=== PATIENT | male | born 1955 | race African-American/Black ===

== ENCOUNTER 2019-02-04 14:03 | Emergency (ER) | payer OTHER ==
--- NOTE | 2019-02-04 14:34 | RAD ---
3 views right wrist. HISTORY: Fall. Right wrist pain. AP, lateral and oblique views right wrist obtained. Images demonstrate vascular calcification seen. No evidence of right wrist fractures, subluxations or bony lesion seen. The scaphoid is unremarkable. IMPRESSION: normal right wrist.
--- NOTE | 2019-02-04 14:39 | RAD ---
AP VIEW OF THE CHEST: HISTORY: Dizziness and fall. DATE: 02/04/2019. COMPARISON: Comparison is made to a previous exam from 06/19/2017. FINDINGS: Calcification and ectasia of the aorta seen. There are areas of patchy density in the left lower lobe compatible with left lower lobe patchy pneum onia. Some of this may also be due to interstitial fibrotic changes. Follow-up films to resolution recommended. IMPRESSION: Areas of patchy density in the left lung base with some interstitial components. Findings may represe nt left lower lobe pneumonia with some component of interstitial fibrosis. Transcribed Date/Time: 02/04/2019 2:42 PM
[2019-02-04 14:46] LABS: #Basophils 0.1 thou/uL (0.0-0.2); #Eosinphils 0.2 thou/uL (0.0-0.7); #Lymphocytes 2.6 thou/uL (1.20-3.40); #Monocytes 0.4 thou/uL (0.11-0.59); #Neutrophils 3.6 thou/uL (1.40-6.50); %Basophils 1.5 % (0.0-1.0); %Eosinophils 3.6 % (0.0-10.0); %Lymphocytes 37.4 % (21.0-51.0); %Monocytes 5.4 % (0.0-10.0); %Neutrophils 52.2 % (42.0-75.0); Hemoglobin 14.8 g/dL (14.0-18.0); Mean Corpuscular HGB CONC 34.3 g/dL (32.0-36.0); Mean Corpuscular Hemoglobin 35.2 pg (27.0-31.0); Mean Platelet Volume 6.8 fL (7.4-10.4); Platelet Count 299 thou/uL (130-400); RBC Distribution Width 13.5 % (11.5-14.5); Red Blood Cell (RBC) Count 4.21 mill/uL (4.70-6.10); White Blood Cell (WBC) Count 6.8 thou/uL (4.8-10.8)
--- NOTE | 2019-02-04 14:47 | CT ---
BRAIN CT WITHOUT IV CONTRAST: HISTORY: Injury following a fall, dizziness. COMPARISON: 06/19/2017. FINDINGS: There is some minimal scattered atrophy and chronic white matter ischemic changes with some small pun ctate old lacunar infarct changes. No focal mass or midline shift. No intra- or extraaxial hemorrha ge. Sinuses and mastoids are clear of acute process. IMPRESSION: Stable atrophy and chronic white matter ischemic change. No mass or bleed or other acute process. POS: C
--- NOTE | 2019-02-04 14:54 | CT ---
CT CERVICAL SPINE NONCONTRAST: DATE: 02/04/2019 HISTORY: cervical trauma FINDINGS: There are no jumped or perched facets. There is no evidence of acute fracture. The vertebral body hei ghts are maintained. There is no prevertebral soft tissue swelling. There are severe multilevel degenerative disc changes and facet osteoarthrosis. IMPRESSION: 1) severe Cervical spondylosis. 2) no evidence of acute fracture or acute traumatic subluxation.
[2019-02-04 15:10] LABS: ALT (SGPT) 30 U/L (8-55); AST (SGOT) 65 U/L (5-34); Albumin 4.2 g/dL (3.4-4.8); Alkaline Phosphatase 81 U/L (40-150); Anion Gap 24 mmol/L (10-20); BUN (Urea Nitrogen) 14 mg/dL (8.4-25.7); Bilirubin, Total 0.5 mg/dL (0.2-1.2); Calc. Creatinine Clearance 0 mL/min (70-130); Calcium 9.9 mg/dL (7.8-10.44); Carbon Dioxide 17 mmol/L (23-31); Chloride 101 mmol/L (98-107); Estimated GFR-MDRD Greater than 90; Globulin 4.9 g/dL (2.4-3.5); Magnesium 1.5 mg/dL (1.6-2.6); Potassium 4.1 mmol/L (3.5-5.1); Protein, Total 9.1 g/dL (5.8-8.1); Sodium 138 mmol/L (136-145)
[2019-02-04 15:17] LABS: Glucose 52 mg/dL (80-115)
== END 2019-02-04 16:25 | disposition home or self-care (01) ==
LOC: ERS 14:03
DX: R42 Dizziness and giddiness (principal); F20.9 Schizophrenia, unspecified; F17.210 Nicotine dependence, cigarettes, uncomplicated; W19.XXXA Unspecified fall, initial encounter
CPT/HCPCS: 36416; 70450; 71045; 72125; 80053; 83735; 84484; 85025; 93005; 96360; 96361; 96374

== ENCOUNTER 2020-03-16 11:26 | Emergency (ER) | payer OTHER ==
[2020-03-16 12:14] LABS: #Basophils 0.1 thou/uL (0.0-0.2); #Eosinphils 0.1 thou/uL (0.0-0.7); #Lymphocytes 1.9 thou/uL (1.20-3.40); #Monocytes 0.6 thou/uL (0.11-0.59); %Eosinophils 1.9 % (0.0-10.0); %Lymphocytes 32.5 % (21.0-51.0); %Neutrophils 53.6 % (42.0-75.0); Hemoglobin 14.5 g/dL (14.0-18.0); Mean Corpuscular HGB CONC 32.8 g/dL (32.0-36.0); Mean Corpuscular Hemoglobin 33.7 pg (27.0-31.0); Mean Platelet Volume 7.7 fL (7.4-10.4); Platelet Count 167 thou/uL (130-400); RBC Distribution Width 12.5 % (11.5-14.5); Red Blood Cell (RBC) Count 4.32 mill/uL (4.70-6.10); White Blood Cell (WBC) Count 5.7 thou/uL (4.8-10.8)
--- NOTE | 2020-03-16 12:29 | RAD ---
Portable frontal chest radiograph: 03/16/2020 COMPARISON: 02/04/2019 HISTORY: Hypertension FINDINGS: There is increased linear interstitial density with pulmonary hyperinflation which may sign sarah COPD in the proper clinical setting. Heart and mediastinal contours are stable. Increased linear interstitial density noted in the lung bases, unchanged. IMPRESSION: Chronic findings as detailed above. No focal consolidation or alveolar edema.
[2020-03-16 12:31] LABS: ALT (SGPT) 31 U/L (8-55); AST (SGOT) 70 U/L (5-34); Albumin 3.8 g/dL (3.4-4.8); Alkaline Phosphatase 78 U/L (40-110); Anion Gap 21 mmol/L (10-20); BUN (Urea Nitrogen) 8 mg/dL (8.4-25.7); Bilirubin, Total 0.6 mg/dL (0.2-1.2); CK (CPK) 134 U/L (30-200); Calc. Creatinine Clearance 0 mL/min (70-130); Calcium 9.3 mg/dL (7.8-10.44); Carbon Dioxide 17 mmol/L (23-31); Chloride 102 mmol/L (98-107); Estimated GFR-MDRD Greater than 90; Globulin 4.9 g/dL (2.4-3.5); Glucose 104 mg/dL (80-115); Potassium 3.6 mmol/L (3.5-5.1); Protein, Total 8.7 g/dL (5.8-8.1); Sodium 136 mmol/L (136-145)
== END 2020-03-16 13:58 | disposition home or self-care (01) ==
LOC: ERS 11:26
DX: I10 Essential (primary) hypertension (principal); F20.9 Schizophrenia, unspecified; F17.210 Nicotine dependence, cigarettes, uncomplicated
CPT/HCPCS: 36415; 71045; 80053; 82550; 83880; 84484; 85025; 93005

== ENCOUNTER 2020-06-05 14:24 | Emergency (ER) | payer OTHER ==
[2020-06-05 14:53] LABS: Bacteria/HPF None Seen HPF (None Seen); Bilirubin Negative (Negative); Blood, Urine Negative (Negative); Clarity Clear (Clear); Glucose, Urine (Dipstick) Normal (Negative); Ketone, Urine Negative (Negative); Leukocyte 250 Leu/uL (Negative); Nitrite Negative (Negative); Protein, Urine (Dipstick) 10 mg/dL (Neg-Trace); RBC/HPF 0-3 HPF (0-3); Specific Gravity, Urine 1.017 (1.002-1.036); Squamous Epithelial 0-3 HPF (0-3); Urobilinogen Normal mg/dL (Less than 2)
--- NOTE | 2020-06-05 15:37 | RAD ---
Exam:3 views left foot. HISTORY: Necrosis of the toes. COMPARISON: Diffuse bony mineralization. Subluxation of the FINDINGS: Proximal interphalangeal joint space of the second digit. No erosive or destructive changes . Lisfranc alignment is maintained. No fracture. Minimal atherosclerosis. IMPRESSION: Minimal atherosclerosis. No erosive or destructive changes. Diffuse bony mineralization.
[2020-06-05 15:46] LABS: #Basophils 0.1 thou/uL (0.0-0.2); #Eosinphils 0.3 thou/uL (0.0-0.7); #Lymphocytes 1.6 thou/uL (1.20-3.40); #Monocytes 0.5 thou/uL (0.11-0.59); #Neutrophils 4.1 thou/uL (1.40-6.50); %Basophils 1.2 % (0.0-1.0); %Eosinophils 4.6 % (0.0-10.0); %Lymphocytes 24.5 % (21.0-51.0); %Monocytes 7.3 % (0.0-10.0); %Neutrophils 62.3 % (42.0-75.0); Hemoglobin 13.1 g/dL (14.0-18.0); Mean Corpuscular HGB CONC 33.9 g/dL (32.0-36.0); Mean Corpuscular Hemoglobin 35.5 pg (27.0-31.0); Mean Platelet Volume 6.9 fL (7.4-10.4); Platelet Count 247 thou/uL (130-400); RBC Distribution Width 12.7 % (11.5-14.5); White Blood Cell (WBC) Count 6.5 thou/uL (4.8-10.8)
--- NOTE | 2020-06-05 16:04 | RAD ---
Exam: Chest one view HISTORY:Dyspnea Comparison: 03/16/2020 FINDINGS: Cardiac silhouette: Normal Aorta: Atherosclerotic and elongated Pulmonary vessels: Normal Costophrenic angles: Clear LUNGS: Hyperinflation with chronic changes. No mass or consolidation. Pneumothorax: None Osseous abnormalities: None IMPRESSION: 1. Atherosclerosis 2. COPD. Chronic lung parenchymal changes.
[2020-06-05 16:10] LABS: ALT (SGPT) 14 U/L (8-55); AST (SGOT) 29 U/L (5-34); Albumin 3.5 g/dL (3.4-4.8); Alkaline Phosphatase 68 U/L (40-110); Anion Gap 19 mmol/L (10-20); BUN (Urea Nitrogen) 32 mg/dL (8.4-25.7); Bilirubin, Total 0.3 mg/dL (0.2-1.2); Calc. Creatinine Clearance 0 mL/min (70-130); Calcium 8.4 mg/dL (7.8-10.44); Carbon Dioxide 14 mmol/L (23-31); Chloride 106 mmol/L (98-107); Estimated GFR-MDRD 68; Globulin 4.2 g/dL (2.4-3.5); Glucose 80 mg/dL (80-115); Potassium 4.8 mmol/L (3.5-5.1); Protein, Total 7.7 g/dL (5.8-8.1); Sodium 134 mmol/L (136-145)
== END 2020-06-05 16:47 | disposition home or self-care (01) ==
LOC: ERS 14:24
DX: L03.032 Cellulitis of left toe (principal); E86.0 Dehydration; N39.0 Urinary tract infection, site not specified; I10 Essential (primary) hypertension; F20.9 Schizophrenia, unspecified; F17.210 Nicotine dependence, cigarettes, uncomplicated; Z79.899 Other long term (current) drug therapy
CPT/HCPCS: 36415; 71045; 80053; 81003; 81015; 83605; 84484; 85025; 87040; 93005

== ENCOUNTER 2020-06-23 16:19 | Inpatient (IN) | payer MEDICARE, MEDICAID, OTHER ==
[~2020-06-23 16:19] MED LIST: Iopamidol 370 76% 100 ML VIAL ONE
--- NOTE | 2020-06-23 16:56 | RAD ---
Exam: Chest one view HISTORY:Altered mental status. Pain. Comparison: 06/05/2020 FINDINGS: Cardiac silhouette: Normal Aorta: Atherosclerosis and elongation of the aorta Pulmonary vessels: Normal Costophrenic angles: Clear LUNGS: Hyperinflation. Chronic changes predominantly the lung bases. Superimposed interstitial infilt rate in the right lung bases second. Pneumothorax: None Osseous abnormalities: None IMPRESSION: 1. COPD. 2. Atherosclerosis 3. Chronic lung parenchymal changes. Right lower lobe interstitial infiltrate cannot be excluded.
[2020-06-23 17:01] LABS: #Basophils 0.1 thou/uL (0.0-0.2); #Eosinphils 0.1 thou/uL (0.0-0.7); #Lymphocytes 1.5 thou/uL (1.20-3.40); #Monocytes 0.6 thou/uL (0.11-0.59); #Neutrophils 3.7 thou/uL (1.40-6.50); %Basophils 0.9 % (0.0-1.0); %Eosinophils 2.3 % (0.0-10.0); %Lymphocytes 24.6 % (21.0-51.0); %Monocytes 10.1 % (0.0-10.0); %Neutrophils 62.1 % (42.0-75.0); Hemoglobin 13.3 g/dL (14.0-18.0); Mean Corpuscular HGB CONC 34.8 g/dL (32.0-36.0); Mean Corpuscular Hemoglobin 35.7 pg (27.0-31.0); Mean Platelet Volume 6.9 fL (7.4-10.4); Platelet Count 276 thou/uL (130-400); Red Blood Cell (RBC) Count 3.73 mill/uL (4.70-6.10); White Blood Cell (WBC) Count 5.9 thou/uL (4.8-10.8)
[2020-06-23 17:19] LABS: ALT (SGPT) 13 U/L (8-55); AST (SGOT) 27 U/L (5-34); Albumin 3.7 g/dL (3.4-4.8); Alkaline Phosphatase 78 U/L (40-110); Anion Gap 16 mmol/L (10-20); BUN (Urea Nitrogen) 56 mg/dL (8.4-25.7); Bilirubin, Total 0.4 mg/dL (0.2-1.2); Calc. Creatinine Clearance 0 mL/min (70-130); Calcium 9.1 mg/dL (7.8-10.44); Carbon Dioxide 17 mmol/L (23-31); Chloride 106 mmol/L (98-107); Estimated GFR-MDRD 27; Globulin 4.7 g/dL (2.4-3.5); Glucose 89 mg/dL (80-115); Potassium 5.6 mmol/L (3.5-5.1); Protein, Total 8.4 g/dL (5.8-8.1); Sodium 133 mmol/L (136-145)
--- NOTE | 2020-06-23 17:27 | CT ---
CTA OF THE HEAD WITH AND WITHOUT IV CONTRAST AND 3-D REFORMATTED IMAGING. CTA OF THE NECK WITH IV CONTRAST AND 3-D REFORMATTED IMAGING. INDICATION: 65-year-old male with generalized weakness and left arm pain tingling. COMPARISON: CT of the brain without contrast dated February 04, 2019. FINDINGS: CTA OF THE HEAD WITH AND WITHOUT CONTRAST: NONCONTRAST CT OF BRAIN: Hemorrhage: None Ischemia/Infarction: No acute infarct is demonstrated. There is moderate chronic small vessel white matter ischemic change which appears stable. Midline Shift: None. Hydrocephalus: None. Skull and Extracranial Soft tissues: Normal. CTA OF THE BRAIN: Right ICA: There is prominent vascular calcification involving the cavernous and supraclinoid ICAs l imiting evaluation of the luminal caliber of the right ICA. There is at least moderate to severe diffuse narrowing of the cavernous and supraclinoid right ICA. Right MCA: Patent. Right ANAMARIA: Patent. ACOM: Patent. Left ICA: There is severe vascular calcification involving the left internal carotid artery limiting evaluation the luminal caliber due to beam hardening artifact. There is at least moderate to severe diffuse narrowing involving the cavernous and supraclinoid left ICA. Left MCA: Patent. Left ANAMARIA: Patent. PCOMs: The left posterior cerebral artery is in origin. The right P-comm appears patent. Vertebral arteries: There is severe vascular calcification involving the vertebral arteries with mod erate narrowing seen diffusely throughout the left vertebral artery. There is a severe area of focal narrowing involving the proximal intradural right vertebral artery on image 196 of series 4. Basilar Artery: Patent. newspaper illustrator: Patent; left STRATIGRAPHY TEACHER has a origin. Incidentals: No abnormal enhancement CTA OF THE NECK WITH CONTRAST: Right CCA: Patent. Right ICA: There is mild narrowing involving the proximal to mid right ICA due to partially calcifie d atherosclerotic plaque. Right Subclavian: There is moderate narrowing involving the mid right subclavian artery due to eccen tric atherosclerotic plaque. Right Vertebral Artery: The cervical course of the right vertebral artery appears patent. Left CCA: Patent. Left ICA: Patent. Left Subclavian: Patent. Left Vertebral Artery: There is complete occlusion of the origin and proximal aspect of the left cer vical vertebral artery with reconstitution at the T1 vertebral level. The remaining cervical course of the left vertebral artery remains patent. Aerodigestive tract: Clear. Parotids/Submandibular/Thyroid glands: Normal. Lymph nodes: No pathologically enlarged lymph nodes. Lung Apices: Emphysema Bones: Moderate to severe cervical spondylosis with mild anterior translation of C4 on C5 which is d egenerative in nature. No acute fracture is evident. Incidentals: None. IMPRESSION: 1. Moderate to severe diffuse narrowing of the cavernous and supraclinoid ICAs bilaterally. 2. Severe narrowing involving the proximal right intradural vertebral artery. Complete occlusion of t he origin and proximal aspect of the left cervical vertebral artery. Moderate narrowing involving the intradural course of the left vertebral artery. 3. Mild narrowing involving the proximal mid aspect of the right cervical ICA. 4. No acute intracranial abnormality. 5. Emphysema
[2020-06-23] MEDS ORDERED: Multivitamins, Adult 10 ML, Thiamine HCl 100 MG, Folic Acid 1 MG in Dextrose 5 %-0.45 %... IV SCH (18:10)
[2020-06-23] MEDS ORDERED: Aspirin Chewable 81 MG TAB ONE (18:21)
[2020-06-23 18:33] LABS: Bilirubin Negative (Negative); Blood, Urine Negative (Negative); Clarity Turbid (Clear); Glucose, Urine (Dipstick) Normal (Negative); Ketone, Urine Negative (Negative); Leukocyte 500 Leu/uL (Negative); Nitrite Negative (Negative); Protein, Urine (Dipstick) 10 mg/dL (Neg-Trace); Specific Gravity, Urine 1.016 (1.002-1.036); Squamous Epithelial 0-3 HPF (0-3); Urobilinogen Normal mg/dL (Less than 2); WBC/HPF Greater than 50 HPF (0-3); pH, Urine 5.5 (5.0-9.0)
[2020-06-23 18:43] LABS: Bacteria/HPF Rare-Few HPF (None Seen)
[2020-06-23 19:49] LABS: Amphetamine Not Detected (NotDetected); Barbiturates Screen Not Detected (NotDetected); Benzodiazepine Screen Not Detected (NotDetected); Cocaine Metabolite Screen Not Detected (NotDetected); Medtox Control Line Valid? VALID (VALID); Medtox Reader # READER 4; Methadone Not Detected (NotDetected); Methamphetamine Not Detected (NotDetected); Opiate Screen Not Detected (NotDetected); Oxycodone Screen Not Detected (NotDetected); Phencyclidine (PCP) Not Detected (NotDetected); THC/Cannabinoid Screen Not Detected (NotDetected); Tricyclic Screen Not Detected (NotDetected)
[2020-06-23] MEDS ORDERED: Diazepam 5 MG TAB PO PRN (20:48)
[2020-06-23] MEDS ORDERED: Sodium Chloride 0.9% 1,000 ML IV SCH (21:00)
[2020-06-23] MEDS ORDERED: Famotidine/PF 20 mg/2ml Vial SLOW IVP SCH (21:00)
[2020-06-23] MEDS ORDERED: Diazepam 5 MG TAB PO SCH (21:00)
[2020-06-23] MEDS: Atorvastatin Calcium 40 MG TAB PO SCH (23:54)
[2020-06-24 00:38] VITALS: BMI 15.7
[2020-06-24] MEDS ORDERED: Lorazepam 2 MG/ML VIAL SLOW IVP PRN (00:41)
[2020-06-24] MEDS ORDERED: Sodium Chloride 0.9% 1,000 ML IV SCH ×2 (00:45)
[2020-06-24 01:46] LABS: #Basophils 0.1 thou/uL (0.0-0.2); #Eosinphils 0.2 thou/uL (0.0-0.7); #Monocytes 0.6 thou/uL (0.11-0.59); #Neutrophils 3.6 thou/uL (1.40-6.50); %Eosinophils 3.2 % (0.0-10.0); %Lymphocytes 17.7 % (21.0-51.0); %Monocytes 11.7 % (0.0-10.0); %Neutrophils 66.4 % (42.0-75.0); Hemoglobin 12.2 g/dL (14.0-18.0); Mean Platelet Volume 6.8 fL (7.4-10.4); Platelet Count 266 thou/uL (130-400); RBC Distribution Width 13.1 % (11.5-14.5); Red Blood Cell (RBC) Count 3.39 mill/uL (4.70-6.10); White Blood Cell (WBC) Count 5.4 thou/uL (4.8-10.8)
[2020-06-24] MEDS: Sodium Bicarbonate 150 MEQ in Dextrose 5% in Water 1,000 ML IV SCH ×2 (02:10→19:07)
--- NOTE | 2020-06-24 02:26 | PDOC.HHP ---
Hospitalist HPI - History of Present Illness Generalized weakness History of Present Illness: Patient is a poor historian and somewhat reluctant to provide much details. Does not appear to be confused. Alert and oriented x 3. Known history of noncompliance. Patient brought into the ED as recommended by home health nurse who follows him for dressing changes for ulcerations involving the 2nd toe on both feed. She was concerned due to complaints of numbness and weakness affected the left upper extremity. The patient apparently had a fall yesterday evening, unable to obtain details. Denies any LOC. He states his gait has been unstable for several weeks and perhaps months. He uses a cane to get around. Denies any dizziness/spinning sensation but has difficulty with balance and generalized we akness. For that reason he tends to be sedentary most of the time. He has had general deconditioning for months, according to his sister, along with reduced oral intake associated with heavy alcohol abuse. Patient admits to drinking 1 pint of whisky a day. Denies any vomiting but states he has no appetite. EMS was called and patient refused transport. They were called again after home health nurse saw him and he agreed to come in. Per ED notes, he was hypotensive in the 90/60s. ROS: Denies any n/v. No headaches or dizziness. No chest pain or palpitations. Does get winded when he exerts himself. Denies any changes from his baseline in his breathing. Has a chronic cough but unable to bring up any sputum. Denies any abdominal pain. No urinary symptoms. ED COURSE: EKG showed NSR, HR of 90. No acute changes. Labs showed WCC 5.9, Hgb 12.3, HCT 38.3, Platelets 276. Na+ 133, K+ 5.6, CO2 17, Chloride 106, AG 16, BUN 56, Creat 2.85, GFR 27. LFTs normal. Lactic acid 1.7. Troponin negative. CXR done showed COPD, atherosclerosis, chronic lung parenchymal changes, RLL interstitial infiltrate possible per report. Brain CT showed no acute changes. CTA head and neck showed: 1. Moderate to severe diffuse narrowing of the cavernous and supraclinoid ICAs bilaterally. 2. Severe narrowing involving the proximal right intradural vertebral artery. Complete occlusion of t he origin and proximal aspect of the left cervical vertebral artery. Moderate narrowing involving the intradural course of the left vertebral artery. 3. Mild narrowing involving the proximal mid aspect of the right cervical ICA. 4. No acute intracranial abnormality. 5. Emphysema UA showed turbid appearing urine, 500 leukocyte, 4-6 RBC, >50 WBC and rare bacteria. Patient admitted for weakness, ARF and Alcohol abuse. He received 325 mg of Aspirin in the ED as well as a banana bag. PAST MEDICAL HISTORY: 1. Alcohol abuse. 2. Hypertension. 3. General deconditioning. 4. Hypertension. 5. Emphysema. 6. Heavy tobacco use. PAST SURGICAL HISTORY: 1. Appendectomy. 2. Polyps removed. FAMILY HISTORY: Noncontributory. SOCIAL HISTORY: He lives at home with family. Reports having smoking but does not specify amount. Admits to drinking 1 pint of whiskey a day. Denies any drug abuse. Attempts to walk with a cane. ALLERGIES: No known drug allergies. CURRENT MEDICATIONS: 1. Amlodipine. 2. Keflex. 3. Bactrim DS. 4. Losartan/HCTZ. 5. Cyproheptadine. Hospitalist ROS - Medication Medications: Active Medications Generic Name Dose Route Start Last Admin Trade Name Freq PRN Reason Stop Dose Admin Atorvastatin Calcium 40 mg 06/23/20 21:00 06/23/20 23:54 Atorvastatin Calcium 40 Mg Tab PO 40 mg HS SARA Administration Famotidine 20 mg 06/23/20 21:00 06/23/20 23:53 Famotidine/Pf 20 Mg/2ml Vial SLOW IVP 20 mg QPM SARA Administration Sodium Bicarbonate 150 meq/ 1,150 mls @ 75 mls/hr 06/24/20 01:30 06/24/20 02:10 Dextrose/Water IV 1,150 mls .[id number] SARA Administration - Exam General Appearance: NAD, awake alert General - other findings: VS: BP: 132/89 (Sitting), MAP: 103, HR: 97, RR: 16 (Non-Labored), O2 98%RA Eye: PERRL, anicteric sclera ENT: dry oral mucosa Neck: supple, no lymphadenopathy Heart: RRR, normal peripheral pulses Respiratory: CTAB (reduced at the bilateral bases), normal chest expansion, no tachypnea Gastrointestinal: soft, non-tender, non-distended, normal bowel sounds, no guarding, no rigidity Extremities: no edema Skin: tenting Skin - other findings: dry skin all throughout, ulcers on dorsum of 2nd middle phalanx bilaterally Neurological - other findings: LUE weak w/reduced senation, reduced control, left facial numbness Musculoskeletal: generalized weakness Musculoskeletal - other findings: reduced power bilaterally, Left 3/5 LUE, 4/5 LLE, 4/5 RUE/RLE Psychiatric: A&O x 3, flat affect Hospitalist Results - Labs Result Diagrams: 06/24/20 01:16 06/23/20 16:47 Lab results: WBC 5.4 thou/uL (4.8-10.8) 06/24/20 01:16 Hgb 12.2 g/dL (14.0-18.0) L 06/24/20 01:16 Hct 34.8 % (42.0-52.0) L 06/24/20 01:16 MCV 103.0 fL (78.0-98.0) H 06/24/20 01:16 Plt Count 266 thou/uL (130-400) 06/24/20 01:16 Neutrophils % 66.4 % (42.0-75.0) 06/24/20 01:16 Sodium 133 mmol/L (136-145) L 06/23/20 16:47 Potassium 5.6 mmol/L (3.5-5.1) H 06/23/20 16:47 Chloride 106 mmol/L (98-107) 06/23/20 16:47 Carbon Dioxide 17 mmol/L (23-31) L 06/23/20 16:47 BUN 56 mg/dL (8.4-25.7) H 06/23/20 16:47 Creatinine 2.85 mg/dL (0.7-1.3) H 06/23/20 16:47 Glucose 89 mg/dL (80-115) 06/23/20 16:47 Lactic Acid 1.1 mmol/L (0.5-2.2) 06/23/20 16:47 Calcium 9.1 mg/dL (7.8-10.44) 06/23/20 16:47 Total Bilirubin 0.4 mg/dL (0.2-1.2) 06/23/20 16:47 AST 27 U/L (5-34) 06/23/20 16:47 ALT 13 U/L (8-55) 06/23/20 16:47 Alkaline Phosphatase 78 U/L (40-110) 06/23/20 16:47 Troponin I 0.010 ng/mL (< 0.028) 06/23/20 16:47 Serum Total Protein 8.4 g/dL (5.8-8.1) H 06/23/20 16:47 Albumin 3.7 g/dL (3.4-4.8) 06/23/20 16:47 Urine Ketones Negative mg/dL (Negative) 06/23/20 17:36 Urine Blood Negative (Negative) 06/23/20 17:36 Urine Nitrite Negative (Negative) 06/23/20 17:36 Ur Leukocyte Esterase 500 Ming/uL (Negative) A 06/23/20 17:36 Urine RBC 4-6 HPF (0-3) A 06/23/20 17:36 Urine WBC Greater than 50 HPF (0-3) A 06/23/20 17:36 Ur Squamous Epith Cells 0-3 HPF (0-3) 06/23/20 17:36 Urine Bacteria Rare-Few HPF (None Seen) 06/23/20 17:36 Hospitalist H&P A/P - Problem (1) Suspected cerebrovascular accident (CVA) Code(s): R09.89 - OTH SYMPTOMS AND SIGNS INVOLVING THE CIRC AND RESP SYSTEMS Status: Acute Assessment and Plan: Slightly improved but persistent LUE weakness/numbness. Continue neuro checks. Neur consult. MRI brain in the AM. Echo ordered. Continue Aspirin and Statin. PT/OT consulted. Bedside screening for dysphagia. (2) Generalized weakness Code(s): R53.1 - WEAKNESS Status: Chronic Assessment and Plan: Associated with malnutrition, deconditioning, alcoholism and dehydration. PT/OT consulted. Consider rehab screening. (3) Acute renal failure Status: Acute Assessment and Plan: Repeat labs to assess for improvement following fluids given in ED. Nephrology consult. Continue to monitor renal function. Reduce IV fluids to 75/hr until rule out possibility of HF/ETOH induced cardiomyopathy. Add-BNP to labs. (4) Hyperkalemia Code(s): E87.5 - HYPERKALEMIA Status: Acute Assessment and Plan: Possibly hemoconcentrated due to dehydration. As mentioned above will repeat labs to reassess given amount of fluids received in the ED. Continue to monitor electrolytes. (5) Alcohol abuse Code(s): F10.10 - ALCOHOL ABUSE, UNCOMPLICATED Status: Chronic Assessment and Plan: Add-on Mg+. Ase protocol ordered. (6) Malnutrition Code(s): E46 - UNSPECIFIED PROTEIN-CALORIE MALNUTRITION Status: Chronic Assessment and Plan: Thin and frail. Reduced PO intake. Member Service Specialist consult ordered. (7) COPD (chronic obstructive pulmonary disease) Status: Chronic Assessment and Plan: Monitor O2 sats. Resume home meds once verified. Questionable changes on CXR concerning for RLL infiltrate. Consider CT Chest to better assess for underlying lung pathology. At present no changes with SOB/Cough from baseline. (8) Tobacco abuse Code(s): Z72.0 - TOBACCO USE Status: Chronic Assessment and Plan: Tobacco cessation. (9) Hypertension Code(s): I10 - ESSENTIAL (PRIMARY) HYPERTENSION Status: Chronic Assessment and Plan: Monitor BP Resume home meds once verified. - Plan Plan: CODE STATUS: FULL Surrogate decision maker is his sister Kamla Riojas. Case discussed with attending who agrees with plan as above.
[2020-06-24 02:51] LABS: ALT (SGPT) 12 U/L (8-55); AST (SGOT) 22 U/L (5-34); Albumin 3.3 g/dL (3.4-4.8); Alkaline Phosphatase 70 U/L (40-110); Anion Gap 14 mmol/L (10-20); BUN (Urea Nitrogen) 48 mg/dL (8.4-25.7); Bilirubin, Total 0.5 mg/dL (0.2-1.2); Calc. Creatinine Clearance 25 mL/min (70-130); Calcium 8.9 mg/dL (7.8-10.44); Carbon Dioxide 14 mmol/L (23-31); Cardiac Risk 2.7 (Less than 4.5); Chloride 105 mmol/L (98-107); Cholesterol 142 mg/dl (< 200 Desired); Estimated GFR-MDRD 41; Globulin 4.2 g/dL (2.4-3.5); Glucose 93 mg/dL (80-115); HDL Cholesterol 52 mg/dL (>60 Neg Risk); LDL Cholesterol, Calculated 76 mg/dL; Lipase 162 U/L (8-78); Potassium 4.9 mmol/L (3.5-5.1); Protein, Total 7.5 g/dL (5.8-8.1); Sodium 128 mmol/L (136-145); Triglycerides 69 mg/dL (Less than 150)
[2020-06-24] MEDS ORDERED: Diazepam 5 MG TAB PO PRN (04:00)
[2020-06-24] MEDS: Acetaminophen 325 MG TAB PO PRN (05:32)
--- NOTE | 2020-06-24 07:35 | PDOC.HOSPP ---
- Subjective Encounter Date: 06/24/20 Encounter Time: 09:40 Subjective: Patient feels generalized weakness, worse on left. Trouble getting up. Not sure for how long. No changes today. - Objective Vital Signs & Weight: Vital Signs (12 hours) Temp Pulse Resp BP BP Pulse Ox 06/24/20 04:00 98.1 F 89 14 103/63 98 06/24/20 00:00 98.6 F 89 15 103/60 99 06/23/20 22:00 133/73 06/23/20 19:55 98.5 F 88 18 133/73 99 Weight Weight 106 lb 4.8 oz I&O: 06/23/20 06/24/20 06/25/20 06:59 06:59 06:59 Intake Total 2380 Balance 2380 Result Diagrams: 06/24/20 01:16 06/24/20 01:16 Hospitalist ROS - Review of Systems Constitutional: reports: weakness. denies: fever, chills Respiratory: denies: cough, shortness of breath Cardiovascular: denies: chest pain, palpitations Gastrointestinal: denies: nausea, vomiting, abdominal pain - Medication Medications: Active Medications Generic Name Dose Route Start Last Admin Trade Name Freq PRN Reason Stop Dose Admin Acetaminophen 650 mg 06/24/20 04:38 06/24/20 05:32 Acetaminophen 325 Mg Tab PO 650 mg Q4H PRN Administration Headache/Fever or Pain Atorvastatin Calcium 40 mg 06/23/20 21:00 06/23/20 23:54 Atorvastatin Calcium 40 Mg Tab PO 40 mg HS SARA Administration Famotidine 20 mg 06/23/20 21:00 06/23/20 23:53 Famotidine/Pf 20 Mg/2ml Vial SLOW IVP 20 mg QPM SARA Administration Sodium Bicarbonate 150 meq/ 1,150 mls @ 75 mls/hr 06/24/20 01:30 06/24/20 02:10 Dextrose/Water IV 1,150 mls .[id number] SARA Administration - Exam General Appearance: NAD, awake alert ENT: moist mucosa Heart: RRR, no murmur, no gallops, no rubs Respiratory: CTAB, no wheezes, no rales, no ronchi Gastrointestinal: soft, non-tender, non-distended, normal bowel sounds Neurological - other findings: possible faint left facial droop, BLE weak, no n oticable lateralizing weakn Psychiatric: normal affect, normal behavior, A&O x 3 Hosp A/P (1) Suspected cerebrovascular accident (CVA) Code(s): R09.89 - OTH SYMPTOMS AND SIGNS INVOLVING THE CIRC AND RESP SYSTEMS Status: Acute (2) Acute renal failure Status: Acute (3) Hyperkalemia Code(s): E87.5 - HYPERKALEMIA Status: Resolved (4) Alcohol abuse Code(s): F10.10 - ALCOHOL ABUSE, UNCOMPLICATED Status: Chronic (5) COPD (chronic obstructive pulmonary disease) Status: Chronic (6) Generalized weakness Code(s): R53.1 - WEAKNESS Status: Chronic (7) Hypertension Code(s): I10 - ESSENTIAL (PRIMARY) HYPERTENSION Status: Chronic (8) Malnutrition Code(s): E46 - UNSPECIFIED PROTEIN-CALORIE MALNUTRITION Status: Chronic (9) Tobacco abuse Code(s): Z72.0 - TOBACCO USE Status: Chronic (10) Hyponatremia Code(s): E87.1 - HYPO-OSMOLALITY AND HYPONATREMIA Status: Acute - Plan MRI and ECHO pending ASE protocol Neuro and Renal consult DVT proph: SCDs GI proph: Pepcid BID
--- NOTE | 2020-06-24 10:01 | MRI ---
Exam: Brain MRI without contrast HISTORY: Evaluate for stroke. Generalized weakness COMPARISON: None FINDINGS: Calvarial marrow signal intensity: Appropriate T1 marrow signal intensity. Gradient echo sequence: Hypointensity in the brainstem due to hemosiderin deposition. No acute hemorr ryann. Brain parenchyma: No mass, mass effect or midline shift. Brain volume, age-appropriate. Cortical singletary-white matter differentiation: Preserved Restricted diffusion: Central arterial flow is maintained. Acute right thalamic infarct with associat ed T2 and FLAIR hyperintensity. White matter signal intensities: T2, FLAIR white matter hyperintensities due to chronic small vessel ischemic changes Sinuses: Adequate aeration of the paranasal sinuses and mastoid air cells. IMPRESSION: Acute right thalamic infarct.
--- NOTE | 2020-06-24 10:16 | CON ---
DATE OF CONSULTATION: HISTORY OF PRESENT ILLNESS: Mr. Spears is a 65-year-old gentleman, who presented to the emergency department on the recommendation of his home health care nurse. He has had a left upper extremity "numbness." He had a fall the night before he presented to the emergency department. As part of his workup, he had a CT angiogram performed of his neck and brain. 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 He also has plaque involving the bulbs of both carotid arteries with minimal luminal encroachment. The patient has been essentially noncompliant with any medical treatment in the past. PAST MEDICAL HISTORY: 1. Heavy tobacco abuse. 2. Alcohol abuse. 3. Hypertension. 4. Emphysema. PAST SURGICAL HISTORY: 1. Appendectomy. 2. Polypectomy. SOCIAL HISTORY: He drinks a pint of whiskey every day. He still smokes at least a pack and a half to 2 packs of cigarettes a day. ALLERGIES: NONE. CURRENT MEDICATIONS: Noted. PHYSICAL EXAMINATION: GENERAL: This is a well-developed, well-nourished male. VITAL SIGNS: Height is 5 feet 9 inches and weight is 106 pounds. Temperature is 98.3, pulse is 88 and regular, blood pressure is 115/68. NECK: Supple. He has soft bilateral carotid bruits. CHEST: Diminished breath sounds bilaterally. HEART: Rhythm is regular. ABDOMEN: Soft and nontender. IMAGING DATA: I have reviewed his CTA. 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 He does have bulb and proximal ICA disease, this is mild in the degree of luminal narrowing. I would just put him on an aspirin. He is not going to be compliant with any other medical regimen and there is no indication for surgical intervention. Job ID: [id number]
[2020-06-24] MEDS: Magnesium Oxide 400 MG TAB PO SCH (10:24)
[2020-06-24] MEDS: Multivitamin W/ Minerals 1 TAB PO SCH (10:24)
[2020-06-24] MEDS: Aspirin 325 mg Enteric Coated Tablet PO SCH (10:25)
[2020-06-24] MEDS: Thiamine 100 MG TAB PO SCH (10:25)
[2020-06-24] MEDS: Folic Acid 1 MG TAB PO SCH (10:25)
--- NOTE | 2020-06-24 10:45 | CT ---
CTA OF THE HEAD WITH AND WITHOUT IV CONTRAST AND 3-D REFORMATTED IMAGING. CTA OF THE NECK WITH IV CONTRAST AND 3-D REFORMATTED IMAGING. INDICATION: 65-year-old male with generalized weakness and left arm pain tingling. COMPARISON: CT of the brain without contrast dated February 04, 2019. FINDINGS: CTA OF THE HEAD WITH AND WITHOUT CONTRAST: NONCONTRAST CT OF BRAIN: Hemorrhage: None Ischemia/Infarction: No acute infarct is demonstrated. There is moderate chronic small vessel white matter ischemic change which appears stable. Midline Shift: None. Hydrocephalus: None. Skull and Extracranial Soft tissues: Normal. CTA OF THE BRAIN: Right ICA: There is prominent vascular calcification involving the cavernous and supraclinoid ICAs l imiting evaluation of the luminal caliber of the right ICA. There is at least moderate to severe diffuse narrowing of the cavernous and supraclinoid right ICA. Right MCA: Patent. Right ANAMARIA: Patent. ACOM: Patent. Left ICA: There is severe vascular calcification involving the left internal carotid artery limiting evaluation the luminal caliber due to beam hardening artifact. There is at least moderate to severe diffuse narrowing involving the cavernous and supraclinoid left ICA. Left MCA: Patent. Left ANAMARIA: Patent. PCOMs: The left posterior cerebral artery is in origin. The right P-comm appears patent. Vertebral arteries: There is severe vascular calcification involving the vertebral arteries with mod erate narrowing seen diffusely throughout the left vertebral artery. There is a severe area of focal narrowing involving the proximal intradural right vertebral artery on image 196 of series 4. Basilar Artery: Patent. link trainer: Patent; left PHOTO INTERN has a origin. Incidentals: No abnormal enhancement CTA OF THE NECK WITH CONTRAST: Right CCA: Patent. Right ICA: There is mild narrowing involving the proximal to mid right ICA due to partially calcifie d atherosclerotic plaque. Right Subclavian: There is moderate narrowing involving the mid right subclavian artery due to eccen tric atherosclerotic plaque. Right Vertebral Artery: The cervical course of the right vertebral artery appears patent. Left CCA: Patent. Left ICA: Patent. Left Subclavian: Patent. Left Vertebral Artery: There is complete occlusion of the origin and proximal aspect of the left cer vical vertebral artery with reconstitution at the T1 vertebral level. The remaining cervical course of the left vertebral artery remains patent. Aerodigestive tract: Clear. Parotids/Submandibular/Thyroid glands: Normal. Lymph nodes: No pathologically enlarged lymph nodes. Lung Apices: Emphysema Bones: Moderate to severe cervical spondylosis with mild anterior translation of C4 on C5 which is d egenerative in nature. No acute fracture is evident. Incidentals: None. IMPRESSION: 1. Moderate to severe diffuse narrowing of the cavernous and supraclinoid ICAs bilaterally. 2. Severe narrowing involving the proximal right intradural vertebral artery. Complete occlusion of t he origin and proximal aspect of the left cervical vertebral artery. Moderate narrowing involving the intradural course of the left vertebral artery. 3. Mild narrowing involving the proximal mid aspect of the right cervical ICA. 4. No acute intracranial abnormality. 5. Emphysema Transcribed Date/Time: 06/24/2020 10:45 AM
--- NOTE | 2020-06-24 12:34 | CON ---
NEUROLOGY CONSULTATION DATE OF CONSULTATION: 06/24/2020 REASON FOR CONSULTATION: Stroke. HISTORY OF PRESENT ILLNESS: Mr. Sage Spears is a 65-year-old male with history significant for alcohol abuse, hypertension, emphysema, tobacco abuse, and general deconditioning, presented to the hospital with generalized weakness. The patient was alert and oriented x3 when he came to the emergency room, but then he was confused at baseline. Per the patient, he had a fall yesterday evening, but he was unable to provide the full history. There has been concern that his gait has been worsened since the last few months, but since the last 2 days, he is more weak than the usual and is unable to get around with a cane and is unsteady on feet. The patient does admit that he drinks one pint of whiskey a day and he denies nausea, vomiting, headache, chest pain, abdominal pain, recent illness or recent exposure to COVID, any abnormal movements or seizure-like activity. In the emergency room, EKG was done, which showed normal sinus rhythm. Chest x-ray showed COPD. Head CT did not reveal any acute intracranial pathology. CTA of the head and neck was done, which showed [id number] diffuse narrowing of the cavernous and supraclinoid ICA bilaterally, and severe narrowing involving the proximal right intradural vertebral artery and complete occlusion of the origin and proximal aspect of the left cervical vertebral artery and moderate narrowing involving the intradural course of the left vertebral artery and mild narrowing of the right cervical ICA. He was given aspirin and banana bag, and admitted for further evaluation. REVIEW OF SYSTEMS: All systems were reviewed and were negative except the pertinent positives and negatives mentioned in the HPI. PAST MEDICAL HISTORY: Alcohol abuse, hypertension, emphysema, general deconditioning, heavy tobacco abuse. PAST SURGICAL HISTORY: Polypectomy, appendectomy. FAMILY HISTORY: No family history of stroke. SOCIAL HISTORY: The patient lives at home with his family. He smokes and drinks one pint of whiskey a day. Denies alcohol abuse. He walks with a cane at baseline. ALLERGIES: NO KNOWN DRUG ALLERGIES. CURRENT MEDICATIONS: Amlodipine, Keflex, Bactrim, losartan/hydrochlorothiazide, cyproheptadine. Vital Signs & Weight: Vital Signs (12 hours) Temp Pulse Resp BP BP Pulse Ox 06/24/20 04:00 98.1 F 89 14 103/63 98 06/24/20 00:00 98.6 F 89 15 103/60 99 06/23/20 22:00 133/73 06/23/20 19:55 98.5 F 88 18 133/73 99 Weight Weight 106 lb 4.8 oz I&O: 06/23/20 06/24/20 06/25/20 06:59 06:59 06:59 Intake Total 2380 Balance 2380 PHYSICAL EXAMINATION: General Appearance: NAD, awake alert Eye: PERRL, anicteric sclera ENT: dry oral mucosa Neck: supple, no lymphadenopathy Heart: RRR, normal peripheral pulses Respiratory: CTAB (reduced at the bilateral bases), normal chest expansion, no tachypnea Gastrointestinal: soft, non-tender, non-distended, normal bowel sounds, no guarding, no rigidity Extremities: no edema Skin: tenting Skin - other findings: dry skin all throughout, ulcers on dorsum of 2nd middle phalanx bilaterally Neurological - Mental status: The patient is alert and oriented to person, place, and time. He refused to give any details. Speech seems clear. Cranial nerves 2 through 12 intact except 5, decreased sensation in V1, V2 and V3 distribution. Motor: Muscle tone and bulk are normal. Moving all 4 extremities. Mild left hemiparesis. Sensory: Decreased sensation to light touch in the left upper and lower extremities. Cerebellar: Did not cooperate with the testing. Gait: Deferred due to the patient's safety reasons. Strength: Left upper and lower extremity 3/5, right upper and lower extremity 4/5. Active Medications Generic Name Dose Route Start Last Admin Trade Name Freq PRN Reason Stop Dose Admin Acetaminophen 650 mg 06/24/20 04:38 06/24/20 05:32 Acetaminophen 325 Mg Tab PO 650 mg Q4H PRN Administration Headache/Fever or Pain Atorvastatin Calcium 40 mg 06/23/20 21:00 06/23/20 23:54 Atorvastatin Calcium 40 Mg Tab PO 40 mg HS SARA Administration Famotidine 20 mg 06/23/20 21:00 06/23/20 23:53 Famotidine/Pf 20 Mg/2ml Vial SLOW IVP 20 mg QPM SARA Administration Sodium Bicarbonate 150 meq/ 1,150 mls @ 75 mls/hr 06/24/20 01:30 06/24/20 02:10 Dextrose/Water IV 1,150 mls .[id number] SARA Administration Data reviewed: WBC 5.4 thou/uL (4.8-10.8) 06/24/20 01:16 Hgb 12.2 g/dL (14.0-18.0) L 06/24/20 01:16 Hct 34.8 % (42.0-52.0) L 06/24/20 01:16 MCV 103.0 fL (78.0-98.0) H 06/24/20 01:16 Plt Count 266 thou/uL (130-400) 06/24/20 01:16 Neutrophils % 66.4 % (42.0-75.0) 06/24/20 01:16 Sodium 133 mmol/L (136-145) L 06/23/20 16:47 Potassium 5.6 mmol/L (3.5-5.1) H 06/23/20 16:47 Chloride 106 mmol/L (98-107) 06/23/20 16:47 Carbon Dioxide 17 mmol/L (23-31) L 06/23/20 16:47 BUN 56 mg/dL (8.4-25.7) H 06/23/20 16:47 Creatinine 2.85 mg/dL (0.7-1.3) H 06/23/20 16:47 Glucose 89 mg/dL (80-115) 06/23/20 16:47 Lactic Acid 1.1 mmol/L (0.5-2.2) 06/23/20 16:47 Calcium 9.1 mg/dL (7.8-10.44) 06/23/20 16:47 Total Bilirubin 0.4 mg/dL (0.2-1.2) 06/23/20 16:47 AST 27 U/L (5-34) 06/23/20 16:47 ALT 13 U/L (8-55) 06/23/20 16:47 Alkaline Phosphatase 78 U/L (40-110) 06/23/20 16:47 Troponin I 0.010 ng/mL (< 0.028) 06/23/20 16:47 Serum Total Protein 8.4 g/dL (5.8-8.1) H 06/23/20 16:47 Albumin 3.7 g/dL (3.4-4.8) 06/23/20 16:47 Urine Ketones Negative mg/dL (Negative) 06/23/20 17:36 Urine Blood Negative (Negative) 06/23/20 17:36 Urine Nitrite Negative (Negative) 06/23/20 17:36 Ur Leukocyte Esterase 500 Ming/uL (Negative) A 06/23/20 17:36 Urine RBC 4-6 HPF (0-3) A 06/23/20 17:36 Urine WBC Greater than 50 HPF (0-3) A 06/23/20 17:36 Ur Squamous Epith Cells 0-3 HPF (0-3) 06/23/20 17:36 Urine Bacteria Rare-Few HPF (None Seen) 06/23/20 17:[address] showed no acute intracranial pathology. CTA head and neck showed: 1. Moderate to severe diffuse narrowing of the cavernous and supraclinoid ICAs bilaterally. 2. Severe narrowing involving the proximal right intradural vertebral artery. Complete occlusion of t he origin and proximal aspect of the left cervical vertebral artery. Moderate narrowing involving the intradural course of the left vertebral artery. 3. Mild narrowing involving the proximal mid aspect of the right cervical ICA. 4. No acute intracranial abnormality. 5. Emphysema ASSESSMENT AND PLAN: (1) Suspected cerebrovascular accident (CVA) Code(s): R09.89 - OTH SYMPTOMS AND SIGNS INVOLVING THE CIRC AND RESP SYSTEMS Status: Acute (2) Acute renal failure Status: Acute (3) Hyperkalemia Code(s): E87.5 - HYPERKALEMIA Status: Resolved (4) Alcohol abuse Code(s): F10.10 - ALCOHOL ABUSE, UNCOMPLICATED Status: Chronic (5) COPD (chronic obstructive pulmonary disease) Status: Chronic (6) Generalized weakness Code(s): R53.1 - WEAKNESS Status: Chronic (7) Hypertension Code(s): I10 - ESSENTIAL (PRIMARY) HYPERTENSION Status: Chronic (8) Malnutrition Code(s): E46 - UNSPECIFIED PROTEIN-CALORIE MALNUTRITION Status: Chronic (9) Tobacco abuse Code(s): Z72.0 - TOBACCO USE Status: Chronic (10) Hyponatremia Code(s): E87.1 - HYPO-OSMOLALITY AND HYPONATREMIA Status: Acute Mr. Sage Spears is a 65-year-old male who was admitted for possible stroke. He is a poor historian and presented with generalized weakness, but exam did reveal focal weakness in the left upper and lower extremity with paresthesias. MRI of the brain reviewed, which showed acute right thalamic infarct. Permissive control of blood pressure at this time. Strict control of blood glucose. Continue aspirin and high-intensity statin for secondary stroke prevention. Check hemoglobin A1c, fasting lipid panel, and TSH. Telemetry to rule out arrhythmias. 2D echo to evaluate for left ventricular ejection fraction. EEG to evaluate for baseline confusion. Physical Therapy/Occupational Therapy/Speech. CTA of the head and neck reviewed, which abnormal. Results noted. The patient is already seen by Vascular Surgery and is deemed not a candidate for surgical intervention due to noncompliance. Recommendation is to continue aspirin. Continue medical management per primary team and Nephrology. CIWA protocol. The patient was counseled about alcohol abuse. Deep venous thrombosis prophylaxis. We will continue to follow. Thank you for the consult. Job ID: [id number] KETURAH
--- NOTE | 2020-06-24 13:00 | PDOC.EEG ---
Neurology EEG Report - Report Report: This EEG was performed using 24 channel [employer] video digital EEG machine with 24 disc electrodes. This was an extended 2 hours 2 minutes of inpatient video EEG recording. Digital analysis of the EEG was done for Serafin and seizure detection which revealed no abnormalities. Background: The posterior background rhythm was not observed. Photic stimulation: No significant response seen with photic stimulation. Hyperventilation: Not performed. Sleep: No stage change was observed. EEG diagnosis: Intermittent irregular theta activity seen throughout the recording. Abscess of posterior background rhythm. Clinical interpretation: This EEG is consistent with moderate generalized nonspecific cerebral dysfunction.
--- NOTE | 2020-06-24 15:17 | RAD ---
EXAM: XR Thoracic Spine 3 V STANDARD PROVIDED CLINICAL HISTORY: Back pain after a fall. COMPARISON: None FINDINGS: Vascular calcifications are seen in a tortuous and ectatic thoracic aorta. There is an oval-shaped ar ea of increased density overlying the left hilar region in a paramediastinal location which does not definitely conform to the left pulmonary artery; although, this is a possibility. CT thorax is re commended for further evaluation of this structure. Nodular density projects over the right midlung zone most likely related to nipple shadow. Chronic bibasilar lung changes are identified. Degenerative changes are seen in the visualized cervical spine as well as scattered osteophytes in th e thoracic spine. Vertebral body heights of the thoracic spine are within normal limits, and no fracture or subluxation is seen. IMPRESSION: 1. Oval-shaped density overlying left hilar region in a left paramediastinal location. Exact etiology for this structure is uncertain and may be related to a normal anatomical structure, but a lesion in this region cannot be excluded. A CT scan thorax with IV contrast is recommended for further evalu ation. 2. Degenerative changes in the thoracic spine.
--- NOTE | 2020-06-24 15:55 | RAD ---
EXAM: XR Cerv Sp Ap Lat STANDARD PROVIDED CLINICAL HISTORY: Neck pain after a fall. COMPARISON: CT cervical spine on 02/04/2019. FINDINGS: C1 to the cervicothoracic junction is seen on the lateral view. Multilevel degenerative changes are s een with narrowing of the intervertebral disc spaces at multiple levels with associated osteophyte formation and endplate degenerative changes. There is trace anterolisthesis of C4 on C5 which is not appreciated on the CT cervical spine. C1-2 articulation on the odontoid view is limited due to overlying structures. No definite fracture is seen. Prevertebral soft tissues are within normal limit s. Prominent vascular calcifications are seen in the aortic arch, subclavian arteries: and bilateral car otid arteries. IMPRESSION: 1. Multilevel degenerative changes in the cervical spine with trace anterolisthesis of C4 on C5.
[2020-06-24] MEDS: Atorvastatin Calcium 40 MG TAB PO SCH (20:52)
[2020-06-24] MEDS: Famotidine 20 MG TAB PO SCH (20:52)
--- NOTE | 2020-06-24 23:22 | CON ---
DATE OF CONSULTATION: CONSULTING PHYSICIAN: Teri Krause MD REQUESTING PHYSICIAN: Dr. Paez. REASON FOR CONSULTATION: Acute kidney injury. IMPRESSION: 1. Acute kidney injury, this is likely hemodynamically mediated. 2. Possible cerebrovascular accident. 3. Hyponatremia. 4. Hyperkalemia. PLAN: 1. We will gently rehydrate this patient. 2. Avoid potentially nephrotoxic agents. 3. Renally dose medications for low GFR. HISTORY OF PRESENT ILLNESS: History is that of a 65-year-old gentleman who presented here with generalized weakness, presented here with complaints of numbness and weakness on the left side suspicious for cerebrovascular accident. On presentation, the patient noted with a creatinine that is elevated to 2.85, thought is the need for renal consultation. PAST MEDICAL HISTORY: Significant for alcohol abuse, hypertension, emphysema, and tobacco abuse. FAMILY HISTORY: Nonsignificantly related to present illness. SOCIAL HISTORY: Significant for alcohol and tobacco abuse. ALLERGIES: NO KNOWN DRUG ALLERGIES. MEDICATIONS: Reviewed and as documented on Urvew. REVIEW OF SYSTEMS: As documented in the body of history. Otherwise, all other systems were reviewed and found not to be significantly related to presenting illness. SUMMARY: This is a 65-year-old gentleman who presented here with symptoms suggestive of CVA, noted with elevated potassium as well as low sodium and metabolic acidosis as well as acute on chronic kidney disease. Thank you for this consultation. We will follow with you. Job ID: [id number]
[2020-06-25] MEDS: Acetaminophen 325 MG TAB PO PRN ×2 (05:10→15:33)
[2020-06-25] MEDS: Sodium Bicarbonate 150 MEQ in Dextrose 5% in Water 1,000 ML IV SCH ×2 (08:41→23:33)
[2020-06-25] MEDS: Aspirin 325 mg Enteric Coated Tablet PO SCH (08:43)
[2020-06-25] MEDS: Folic Acid 1 MG TAB PO SCH (08:44)
[2020-06-25] MEDS: Thiamine 100 MG TAB PO SCH (08:45)
[2020-06-25] MEDS: Magnesium Oxide 400 MG TAB PO SCH (08:45)
[2020-06-25] MEDS: Multivitamin W/ Minerals 1 TAB PO SCH (08:46)
--- NOTE | 2020-06-25 10:35 | CON ---
DATE OF CONSULTATION: HISTORY OF PRESENT ILLNESS: The patient is a 65-year-old gentleman who presented with left-sided weakness. The patient has no previous cardiac history. The patient has a long history of alcohol abuse. The patient reports that he developed acute onset of left-sided weakness. He denied having any chest discomfort. The patient does report having dyspnea on exertion. He denies having any PND or orthopnea. PAST MEDICAL HISTORY: 1. CVA. 2. Hypertension. 3. Alcohol abuse. 4. Tobacco abuse. PAST SURGICAL HISTORY: Appendectomy. SOCIAL HISTORY: Long history of ethanol and tobacco abuse. FAMILY HISTORY: No strong family history of heart disease. ALLERGIES: NONE. MEDICATIONS: None. PHYSICAL EXAMINATION: GENERAL: Very cachectic gentleman, in no acute distress. VITAL SIGNS: Blood pressure was 114/81. NECK: No jugular venous distention. LUNGS: Clear to auscultation. HEART: Regular rate and rhythm. Normal S1, S2. No murmurs. ABDOMEN: Nondistended. EXTREMITIES: Showed no edema. NEUROLOGIC: Decreased strength in his left upper extremity and left lower extremity. LABORATORY RESULTS: Sodium 128, potassium 4.9, chloride 105, bicarbonate 14, BUN 48, creatinine 1.98. His white blood cell count is 5.4, hemoglobin 12.2, and hematocrit 34.8, and platelets are 266. EKG revealed normal sinus rhythm with a nonspecific T-wave abnormality. Echocardiogram revealed normal left ventricular ejection fraction 55% to 60%. Aortic valve leaflets were sclerotic. Telemetry monitoring accelerated junctional tachycardia. IMPRESSION: 1. Cerebrovascular accident. 2. Severe cerebrovascular disease. 3. Accelerated junctional tachycardia. 4. Renal insufficiency. 5. Ethanol abuse. 6. Tobacco abuse. This gentleman had a short run of junctional tachycardia. From a Cardiac standpoint, he will continue to be observed on telemetry. The patient has been highly advised to discontinue smoking. We will follow this patient with you through his hospitalization. Job ID: [id number] [facility]
--- NOTE | 2020-06-25 12:37 | PDOC.NEUPN ---
- Subjective Encounter Date: 06/25/20 Subjective: Mr. Spears denies any new complaints in the last 24 hours. - Objective Vital Signs & Weight: Vital Signs (12 hours) Temp Pulse Resp BP BP Pulse Ox 06/25/20 11:28 98.2 F 90 16 125/82 97 06/25/20 07:50 98.3 F 107 H 20 114/81 97 06/25/20 05:01 98.7 F 95 15 109/78 98 Weight Admit Weight 106 lb 4.8 oz Weight 106 lb 4.8 oz I&O: 06/24/20 06/25/20 06/26/20 06:59 06:59 06:59 Intake Total 2380 1860 Output Total 100 Balance 2380 1760 Result Diagrams: 06/24/20 01:16 06/24/20 01:16 Additional Labs: Accuchecks 06/23/20 17:25 POC Glucose 74 Radiology Reviewed by me: Yes EKG Reviewed by me: Yes ROS - Review of Systems Constitutional: denies: fever, chills, sweats, weakness, malaise, other Eyes: denies: pain, vision change, conjunctivae inflammation, eyelid inflammation, redness, other ENT: denies: ear pain, ear discharge, nose pain, nose discharge, nose congestion, mouth pain, mouth swelling, throat pain, throat swelling, other Gastrointestinal: denies: nausea, vomiting, abdominal pain, diarrhea, constipation, melena, hematochezia, other Neurological: reports: weakness. denies: numbness, incoordination, change in speech, confusion, seizures, other - Medication Medications: Active Medications Generic Name Dose Route Start Last Admin Trade Name Amparo PRN Reason Stop Dose Admin Acetaminophen 650 mg 06/24/20 04:38 06/25/20 05:10 Acetaminophen 325 Mg Tab PO 650 mg Q4H PRN Administration Headache/Fever or Pain Aspirin 325 mg 06/24/20 09:00 06/25/20 08:43 Aspirin 325 Mg Enteric Coated Tablet PO 325 mg DAILY SARA Administration Atorvastatin Calcium 40 mg 06/23/20 21:00 06/24/20 20:52 Atorvastatin Calcium 40 Mg Tab PO 40 mg HS SARA Administration Famotidine 20 mg 06/24/20 21:00 06/24/20 20:52 Famotidine 20 Mg Tab PO 20 mg QPM SARA Administration Folic Acid 1 mg 06/24/20 09:00 06/25/20 08:44 Folic Acid 1 Mg Tab PO 1 mg DAILY SARA Administration Sodium Bicarbonate 150 meq/ 1,150 mls @ 75 mls/hr 06/24/20 01:30 06/25/20 08:41 Dextrose/Water IV 1,150 mls .[id number] SARA Administration Iron/Minerals/Multivitamins 1 tab 06/24/20 09:00 06/25/20 08:46 Multivitamin W/ Minerals 1 Tab PO 1 tab DAILY SARA Administration Magnesium Oxide 400 mg 06/24/20 09:00 06/25/20 08:45 Magnesium Oxide 400 Mg Tab PO 400 mg DAILY SARA Administration Thiamine HCl 100 mg 06/24/20 09:00 06/25/20 08:45 Thiamine 100 Mg Tab PO 100 mg DAILY SARA Administration - Exam General Appearance: awake alert Eye: PERRL ENT: normocephalic atraumatic Neck: supple Respiratory: CTAB Cardiovascular: RRR Gastrointestinal: soft Extremities: no cyanosis Skin: normal turgor Neurological: no new deficit Musculoskeletal: generalized weakness PSYCH: normal affect, normal behavior, oriented to person, oriented to place Results - Labs Result Diagrams: 06/24/20 01:16 06/24/20 01:16 Lab results: WBC 5.4 thou/uL (4.8-10.8) 06/24/20 01:16 Hgb 12.2 g/dL (14.0-18.0) L 06/24/20 01:16 Hct 34.8 % (42.0-52.0) L 06/24/20 01:16 MCV 103.0 fL (78.0-98.0) H 06/24/20 01:16 Plt Count 266 thou/uL (130-400) 06/24/20 01:16 Neutrophils % 66.4 % (42.0-75.0) 06/24/20 01:16 Sodium 128 mmol/L (136-145) L 06/24/20 01:16 Potassium 4.9 mmol/L (3.5-5.1) 06/24/20 01:16 Chloride 105 mmol/L (98-107) 06/24/20 01:16 Carbon Dioxide 14 mmol/L (23-31) L 06/24/20 01:16 BUN 48 mg/dL (8.4-25.7) H 06/24/20 01:16 Creatinine 1.98 mg/dL (0.7-1.3) H 06/24/20 01:16 Glucose 93 mg/dL (80-115) 06/24/20 01:16 Lactic Acid 1.1 mmol/L (0.5-2.2) 06/23/20 16:47 Calcium 8.9 mg/dL (7.8-10.44) 06/24/20 01:16 Total Bilirubin 0.5 mg/dL (0.2-1.2) 06/24/20 01:16 AST 22 U/L (5-34) 06/24/20 01:16 ALT 12 U/L (8-55) 06/24/20 01:16 Alkaline Phosphatase 70 U/L (40-110) 06/24/20 01:16 Troponin I 0.010 ng/mL (< 0.028) 06/23/20 16:47 Serum Total Protein 7.5 g/dL (5.8-8.1) 06/24/20 01:16 Albumin 3.3 g/dL (3.4-4.8) L 06/24/20 01:16 Lipase 162 U/L (8-78) H 06/24/20 01:16 Urine Ketones Negative mg/dL (Negative) 06/23/20 17:36 Urine Blood Negative (Negative) 06/23/20 17:36 Urine Nitrite Negative (Negative) 06/23/20 17:36 Ur Leukocyte Esterase 500 Ming/uL (Negative) A 06/23/20 17:36 Urine RBC 4-6 HPF (0-3) A 06/23/20 17:36 Urine WBC Greater than 50 HPF (0-3) A 06/23/20 17:36 Ur Squamous Epith Cells 0-3 HPF (0-3) 06/23/20 17:36 Urine Bacteria Rare-Few HPF (None Seen) 06/23/20 17:36 - EKG Interpretation EKG: EKG showed a run of junctional tachycardia. - Radiology Interpretation MRI - head Status: image reviewed by me, report reviewed by me Additional Comment: MRI of the brain showed acute right thalamic infarct PN A/P (1) Acute CVA (cerebrovascular accident) Code(s): I63.9 - CEREBRAL INFARCTION, UNSPECIFIED Status: Acute (2) Acute renal failure Status: Acute (3) Alcohol abuse Code(s): F10.10 - ALCOHOL ABUSE, UNCOMPLICATED Status: Chronic (4) COPD (chronic obstructive pulmonary disease) Status: Chronic (5) Generalized weakness Code(s): R53.1 - WEAKNESS Status: Chronic (6) Hypertension Code(s): I10 - ESSENTIAL (PRIMARY) HYPERTENSION Status: Chronic (7) Malnutrition Code(s): E46 - UNSPECIFIED PROTEIN-CALORIE MALNUTRITION Status: Chronic (8) Tobacco abuse Code(s): Z72.0 - TOBACCO USE Status: Chronic - Plan Daily Plan: PT/OT, speech therapy, DVT proph w/SCDs 65-year-old male with medical history significant for malnutrition, alcohol abuse, tobacco abuse presented with confusion and left-sided weakness. MRI of the brain consistent with acute infarction. MRI of the brain reviewed which was consistent with acute infarct in the right thalamus EEG reviewed which was negative for seizure activity. Telemetry shows an episode of junctional arrhythmia. Cardiology is on board. 2D echo showed left ventricle ejection fraction 55 to 60%. No thrombus or PFO. TA head and neck results reviewed which were abnormal. Appreciate vascular surgery recommendations. No surgical intervention needed at this time. Neurochecks every 4 hours. Permissive control of blood pressure at this time. Strict control of blood glucose. Continue home medications. Continue aspirin and high intensity statin for secondary stroke prevention. PT/OT/speech Continue medical management per primary team. Patient counseled about alcohol and tobacco abuse.[facility] protocol DVT prophylaxis.
--- NOTE | 2020-06-25 17:26 | PDOC.HOSPP ---
- Subjective Encounter Date: 06/25/20 Encounter Time: 17:05 Subjective: f/u for Acute CVA in R thalamus with left weakness, ETOH/Tobacco abuse. Feels ok overall. Ambulated to door in room with RW. States toe ulcers on both feet for weeks taking abx at home. - Objective Vital Signs & Weight: Vital Signs (12 hours) Temp Pulse Pulse Pulse Resp BP BP 06/25/20 14:36 98.1 F 98 18 06/25/20 12:20 94 95 115/75 06/25/20 11:28 98.2 F 90 16 125/82 06/25/20 08:40 06/25/20 07:50 98.3 F 107 H 20 06/25/20 07:20 114/81 BP BP BP Pulse Ox 06/25/20 14:36 102/67 98 06/25/20 12:20 132/76 06/25/20 11:28 125/82 97 06/25/20 08:40 97 06/25/20 07:50 114/81 97 06/25/20 07:20 Weight Admit Weight 106 lb 4.8 oz Weight 106 lb 4.8 oz I&O: 06/24/20 06/25/20 06/26/20 06:59 06:59 06:59 Intake Total 2380 1860 Output Total 100 Balance 2380 1760 Result Diagrams: 06/24/20 01:16 06/24/20 01:16 Additional Labs: Microbiology 06/23/20 17:55 Urine voided Urine Culture - Final NO GROWTH AT 48 HOURS Laboratory Tests 06/23/20 06/23/20 06/23/20 16:47 16:47 16:47 Hgb 13.3 L Sodium 133 L Potassium 5.6 H Carbon Dioxide 17 L BUN 56 H Creatinine 2.85 H Lactic Acid 1.1 Magnesium Triglycerides Cholesterol LDL Cholesterol, Calc HDL Cholesterol Lipase 06/23/20 06/24/20 16:48 01:16 Hgb Sodium Potassium Carbon Dioxide BUN Creatinine Lactic Acid Magnesium 1.7 Triglycerides 69 Cholesterol 142 LDL Cholesterol, Calc 76 HDL Cholesterol 52 Lipase 162 H Radiology Reviewed by me: Yes (Echo - EF 55-60%) EKG Reviewed by me: Yes (Tele - SR) Hospitalist ROS - Medication Medications: Active Medications Generic Name Dose Route Start Last Admin Trade Name Freq PRN Reason Stop Dose Admin Acetaminophen 650 mg 06/24/20 04:38 06/25/20 15:33 Acetaminophen 325 Mg Tab PO 650 mg Q4H PRN Administration Headache/Fever or Pain Aspirin 325 mg 06/24/20 09:00 06/25/20 08:43 Aspirin 325 Mg Enteric Coated Tablet PO 325 mg DAILY SARA Administration Atorvastatin Calcium 40 mg 06/23/20 21:00 06/24/20 20:52 Atorvastatin Calcium 40 Mg Tab PO 40 mg HS SARA Administration Famotidine 20 mg 06/24/20 21:00 06/24/20 20:52 Famotidine 20 Mg Tab PO 20 mg QPM SARA Administration Folic Acid 1 mg 06/24/20 09:00 06/25/20 08:44 Folic Acid 1 Mg Tab PO 1 mg DAILY SARA Administration Sodium Bicarbonate 150 meq/ 1,150 mls @ 75 mls/hr 06/24/20 01:30 06/25/20 08:41 Dextrose/Water IV 1,150 mls .[id number] SARA Administration Iron/Minerals/Multivitamins 1 tab 06/24/20 09:00 06/25/20 08:46 Multivitamin W/ Minerals 1 Tab PO 1 tab DAILY SARA Administration Magnesium Oxide 400 mg 06/24/20 09:00 06/25/20 08:45 Magnesium Oxide 400 Mg Tab PO 400 mg DAILY SARA Administration Thiamine HCl 100 mg 06/24/20 09:00 06/25/20 08:45 Thiamine 100 Mg Tab PO 100 mg DAILY SARA Administration - Exam General Appearance: awake alert Eye: PERRL, anicteric sclera ENT: normocephalic atraumatic, no oropharyngeal lesions Neck: supple, symmetric, no JVD, no thyromegaly, no lymphadenopathy Heart: RRR, no murmur, no gallops, no rubs, normal peripheral pulses Heart - other findings: S1, S2 Respiratory: CTAB, no wheezes, no rales, no ronchi, normal chest expansion Gastrointestinal: soft, non-tender, non-distended, normal bowel sounds, no palpable masses Extremities - other findings: 2nd toe bilat feet with dry gangrene Skin: normal turgor Neurological: facial droop Neurological - other findings: mild dysphasia, L U/LE weakness Musculoskeletal: generalized weakness, diffuse muscle atrophy Psychiatric: A&O x 3, flat affect Hosp A/P (1) Acute CVA (cerebrovascular accident) Code(s): I63.9 - CEREBRAL INFARCTION, UNSPECIFIED Status: Acute Plan: Continue ASA/Lipitor, general stroke protocol (2) Hyperkalemia Code(s): E87.5 - HYPERKALEMIA Status: Acute Plan: Resolving, continue IVF's, serial K+ (3) Acute renal failure Status: Acute Plan: Improved, avoid nephrotoxic meds and limit contrast exposure (4) Hyponatremia Code(s): E87.1 - HYPO-OSMOLALITY AND HYPONATREMIA Status: Acute Plan: Secondary to chronic ETOH use (5) Alcohol abuse Code(s): F10.10 - ALCOHOL ABUSE, UNCOMPLICATED Status: Chronic Plan: ASE protocol (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, NOT ELSEWHERE CLASSIFIED Status: Acute Plan: Consult Gen Surgery for evaluation (7) Generalized weakness Code(s): R53.1 - WEAKNESS Status: Chronic (8) Malnutrition Code(s): E46 - UNSPECIFIED PROTEIN-CALORIE MALNUTRITION Status: Chronic (9) Tobacco abuse Code(s): Z72.0 - TOBACCO USE Status: Chronic Plan: Tobacco cessation resources - Plan PT/OT, social service liaison, speech therapy, out of bed/ambulate Stable currently Continue ASA/Lipitor Resume home BP meds Consult General surgery regarding gangrenous toes OOB with PT AM lab: CMP
--- NOTE | 2020-06-25 20:16 | PRG ---
DATE OF SERVICE: 06/25/2020 SUBJECTIVE: The patient with no new complaint, noted with the following vital signs. OBJECTIVE: VITAL SIGNS: Afebrile, temperature 98.1, pulse 98, blood pressure 125/82, respiratory rate of 18, O2 saturations of 98%. HEENT: Unremarkable. CARDIOVASCULAR SYSTEM: First and second heart sounds were heard. RESPIRATORY SYSTEM: Clear to auscultation. DIGESTIVE SYSTEM: Revealed a benign abdomen with positive bowel sounds. EXTREMITIES: No peripheral edema. SKIN: No new gross rash. LYMPHATICS: No peripheral lymphadenopathy. LABORATORY INVESTIGATION: Unfortunately, there is no chemistry today. IMPRESSION: 1. Acute on chronic kidney disease, which seems to be improving. 2. Metabolic acidosis. Unfortunately, no lab to evaluate today. PLAN: We will continue the bicarb infusion until we have a new lab. Therefore, we will recommend checking the chemistry tomorrow and make adjustments accordingly based on the results. Job ID: [id number]
[2020-06-25] MEDS: Famotidine 20 MG TAB PO SCH (20:46)
[2020-06-25] MEDS: Atorvastatin Calcium 40 MG TAB PO SCH (20:47)
[2020-06-25] MEDS: Cyproheptadine 4 MG TAB PO SCH (20:47)
[2020-06-26 05:49] LABS: ALT (SGPT) 10 U/L (8-55); AST (SGOT) 21 U/L (5-34); Albumin 3.1 g/dL (3.4-4.8); Alkaline Phosphatase 67 U/L (40-110); Anion Gap 10 mmol/L (10-20); BUN (Urea Nitrogen) 25 mg/dL (8.4-25.7); Bilirubin, Total 0.3 mg/dL (0.2-1.2); Calc. Creatinine Clearance 32 mL/min (70-130); Calcium 8.6 mg/dL (7.8-10.44); Carbon Dioxide 31 mmol/L (23-31); Chloride 96 mmol/L (98-107); Estimated GFR-MDRD 54; Globulin 3.9 g/dL (2.4-3.5); Glucose 98 mg/dL (80-115); Potassium 3.9 mmol/L (3.5-5.1); Sodium 133 mmol/L (136-145)
[2020-06-26] MEDS: Aspirin 325 mg Enteric Coated Tablet PO SCH (10:29)
[2020-06-26] MEDS: Thiamine 100 MG TAB PO SCH (10:29)
[2020-06-26] MEDS: Folic Acid 1 MG TAB PO SCH (10:29)
[2020-06-26] MEDS: Magnesium Oxide 400 MG TAB PO SCH (10:29)
[2020-06-26] MEDS: Cyproheptadine 4 MG TAB PO SCH ×2 (10:29→21:32)
[2020-06-26] MEDS: Multivitamin W/ Minerals 1 TAB PO SCH (10:29)
[2020-06-26] MEDS: Amlodipine 10 MG TAB PO SCH (10:50)
--- NOTE | 2020-06-26 10:59 | PDOC.NEUPN ---
- Subjective Encounter Date: 06/26/20 Subjective: Patient denies any new complaints. - Objective Vital Signs & Weight: Vital Signs (12 hours) Temp Pulse Resp BP BP BP Pulse Ox 06/26/20 10:50 96 06/26/20 07:34 97.8 F 96 15 116/72 97 06/26/20 04:41 99.6 F 104 H 18 137/77 97 06/26/20 03:00 137/77 06/26/20 00:00 99.4 F 100 18 91/55 L 97 06/25/20 23:00 91/55 L Weight Admit Weight 106 lb 4.8 oz Weight 106 lb 4.8 oz I&O: 06/25/20 06/26/20 06/27/20 06:59 06:59 06:59 Intake Total 1860 951 Output Total 100 Balance 1760 951 Result Diagrams: 06/24/20 01:16 06/26/20 04:47 Radiology Reviewed by me: Yes EKG Reviewed by me: Yes ROS - Review of Systems Constitutional: denies: fever, chills, sweats, weakness, malaise, other Eyes: denies: pain, vision change, conjunctivae inflammation, eyelid inflammation, redness, other ENT: denies: ear pain, ear discharge, nose pain, nose discharge, nose congestion, mouth pain, mouth swelling, throat pain, throat swelling, other All Systems: All other systems reviewed; all pertinent +/- noted in HPI/Subj - Medication Medications: Active Medications Generic Name Dose Route Start Last Admin Trade Name Freq PRN Reason Stop Dose Admin Acetaminophen 650 mg 06/24/20 04:38 06/25/20 15:33 Acetaminophen 325 Mg Tab PO 650 mg Q4H PRN Administration Headache/Fever or Pain Amlodipine Besylate 10 mg 06/26/20 09:00 06/26/20 10:50 Amlodipine 10 Mg Tab PO Not Given DAILY SARA Aspirin 325 mg 06/24/20 09:00 06/26/20 10:29 Aspirin 325 Mg Enteric Coated Tablet PO 325 mg DAILY SARA Administration Atorvastatin Calcium 40 mg 06/23/20 21:00 06/25/20 20:47 Atorvastatin Calcium 40 Mg Tab PO 40 mg HS SARA Administration Cyproheptadine HCl 4 mg 06/25/20 21:00 06/26/20 10:29 Cyproheptadine 4 Mg Tab PO 4 mg BID SARA Administration Famotidine 20 mg 06/24/20 21:00 06/25/20 20:46 Famotidine 20 Mg Tab PO 20 mg QPM SARA Administration Folic Acid 1 mg 06/24/20 09:00 06/26/20 10:29 Folic Acid 1 Mg Tab PO 1 mg DAILY SARA Administration Sodium Bicarbonate 150 meq/ 1,150 mls @ 75 mls/hr 06/24/20 01:30 06/25/20 23:33 Dextrose/Water IV 1,150 mls .[id number] SARA Administration Iron/Minerals/Multivitamins 1 tab 06/24/20 09:00 06/26/20 10:29 Multivitamin W/ Minerals 1 Tab PO 1 tab DAILY SARA Administration Magnesium Oxide 400 mg 06/24/20 09:00 06/26/20 10:29 Magnesium Oxide 400 Mg Tab PO 400 mg DAILY SARA Administration Thiamine HCl 100 mg 06/24/20 09:00 06/26/20 10:29 Thiamine 100 Mg Tab PO 100 mg DAILY SARA Administration - Exam General Appearance: awake alert Eye: PERRL ENT: normocephalic atraumatic Neck: supple Respiratory: CTAB Cardiovascular: RRR Gastrointestinal: soft Extremities: no cyanosis Skin: normal turgor Neurological: no new deficit PSYCH: normal affect, normal behavior, oriented to person, oriented to place Results - Labs Result Diagrams: 06/24/20 01:16 06/26/20 04:47 Lab results: WBC 5.4 thou/uL (4.8-10.8) 06/24/20 01:16 Hgb 12.2 g/dL (14.0-18.0) L 06/24/20 01:16 Hct 34.8 % (42.0-52.0) L 06/24/20 01:16 MCV 103.0 fL (78.0-98.0) H 06/24/20 01:16 Plt Count 266 thou/uL (130-400) 06/24/20 01:16 Neutrophils % 66.4 % (42.0-75.0) 06/24/20 01:16 Sodium 133 mmol/L (136-145) L 06/26/20 04:47 Potassium 3.9 mmol/L (3.5-5.1) 06/26/20 04:47 Chloride 96 mmol/L (98-107) L 06/26/20 04:47 Carbon Dioxide 31 mmol/L (23-31) 06/26/20 04:47 BUN 25 mg/dL (8.4-25.7) 06/26/20 04:47 Creatinine 1.56 mg/dL (0.7-1.3) H 06/26/20 04:47 Glucose 98 mg/dL (80-115) 06/26/20 04:47 Lactic Acid 1.1 mmol/L (0.5-2.2) 06/23/20 16:47 Calcium 8.6 mg/dL (7.8-10.44) 06/26/20 04:47 Total Bilirubin 0.3 mg/dL (0.2-1.2) 06/26/20 04:47 AST 21 U/L (5-34) 06/26/20 04:47 ALT 10 U/L (8-55) 06/26/20 04:47 Alkaline Phosphatase 67 U/L (40-110) 06/26/20 04:47 Troponin I 0.010 ng/mL (< 0.028) 06/23/20 16:47 Serum Total Protein 7.0 g/dL (5.8-8.1) 06/26/20 04:47 Albumin 3.1 g/dL (3.4-4.8) L 06/26/20 04:47 Lipase 162 U/L (8-78) H 06/24/20 01:16 Urine Ketones Negative mg/dL (Negative) 06/23/20 17:36 Urine Blood Negative (Negative) 06/23/20 17:36 Urine Nitrite Negative (Negative) 06/23/20 17:36 Ur Leukocyte Esterase 500 Ming/uL (Negative) A 06/23/20 17:36 Urine RBC 4-6 HPF (0-3) A 06/23/20 17:36 Urine WBC Greater than 50 HPF (0-3) A 06/23/20 17:36 Ur Squamous Epith Cells 0-3 HPF (0-3) 06/23/20 17:36 Urine Bacteria Rare-Few HPF (None Seen) 06/23/20 17:36 - Radiology Interpretation MRI - head Status: image reviewed by me, report reviewed by me Additional Comment: acute right thalamic infarct PN A/P (1) Acute CVA (cerebrovascular accident) Code(s): I63.9 - CEREBRAL INFARCTION, UNSPECIFIED Status: Acute (2) Acute renal failure Status: Acute (3) Alcohol abuse Code(s): F10.10 - ALCOHOL ABUSE, UNCOMPLICATED Status: Chronic (4) COPD (chronic obstructive pulmonary disease) Status: Chronic (5) Generalized weakness Code(s): R53.1 - WEAKNESS Status: Chronic (6) Hypertension Code(s): I10 - ESSENTIAL (PRIMARY) HYPERTENSION Status: Chronic (7) Malnutrition Code(s): E46 - UNSPECIFIED PROTEIN-CALORIE MALNUTRITION Status: Chronic (8) Tobacco abuse Code(s): Z72.0 - TOBACCO USE Status: Chronic - Plan Daily Plan: PT/OT, speech therapy, DVT proph w/SCDs 65-year-old male with medical history significant for malnutrition, alcohol abuse, tobacco abuse presented with confusion and left-sided weakness. MRI of the brain consistent with acute infarction. Patient is alert and oriented x 2 but confused at baseline. Awaiting surgery recommendations regarding gangrenous toes. CM on boarf regarding discharge planning. MRI of the brain reviewed which was consistent with acute infarct in the right thalamus EEG reviewed which was negative for seizure activity. Telemetry shows an episode of junctional arrhythmia. Cardiology is on board. 2D echo showed left ventricle ejection fraction 55 to 60%. No thrombus or PFO. CTA head and neck results reviewed which were abnormal. Appreciate vascular surgery recommendations. No surgical intervention needed at this time. Neurochecks every 4 hours. Permissive control of blood pressure at this time. Strict control of blood glucose. Continue home medications. Continue aspirin and high intensity statin for secondary stroke prevention. PT/OT/speech Continue medical management per primary team. Patient counseled about alcohol and tobacco abuse.[facility] protocol DVT prophylaxis. Plan discussed during stroke rounds and with primary attending Dr. Desir.
[2020-06-26 11:03] LABS: SARS-CoV-2 MS2 Positive; SARS-CoV-2 N Gene Negative; SARS-CoV-2 S Gene Negative; SARS-CoV-2 by NAA Not Detected (NotDetected); SARS-CoV-2 orf1ab Negative
--- NOTE | 2020-06-26 11:21 | PDOC.HOSPP ---
- Subjective Encounter Date: 06/26/20 Encounter Time: 11:05 Subjective: f/u for R thalamus CVA on current ASA/Lipitor ambulated with PT about 25'. States feeling ok overall. Tolerating po intake. - Objective Vital Signs & Weight: Vital Signs (12 hours) Temp Pulse Resp BP BP BP Pulse Ox 06/26/20 10:50 96 06/26/20 07:34 97.8 F 96 15 116/72 97 06/26/20 04:41 99.6 F 104 H 18 137/77 97 06/26/20 03:00 137/77 06/26/20 00:00 99.4 F 100 18 91/55 L 97 Weight Admit Weight 106 lb 4.8 oz Weight 106 lb 4.8 oz I&O: 06/25/20 06/26/20 06/27/20 06:59 06:59 06:59 Intake Total 1860 951 Output Total 100 Balance 1760 951 Result Diagrams: 06/24/20 01:16 06/26/20 04:47 Additional Labs: Microbiology 06/23/20 17:55 Urine voided Urine Culture - Final NO GROWTH AT 48 HOURS Laboratory Tests 06/23/20 06/23/20 06/23/20 16:47 16:47 16:47 Hgb 13.3 L Sodium 133 L Potassium 5.6 H Carbon Dioxide 17 L BUN 56 H Creatinine 2.85 H Lactic Acid 1.1 Magnesium Triglycerides Cholesterol LDL Cholesterol, Calc HDL Cholesterol Lipase 06/23/20 06/24/20 16:48 01:16 Hgb Sodium 128 L Potassium Carbon Dioxide BUN 48 H Creatinine 1.98 H Lactic Acid Magnesium 1.7 Triglycerides 69 Cholesterol 142 LDL Cholesterol, Calc 76 HDL Cholesterol 52 Lipase 162 H EKG Reviewed by me: Yes (Tele - SR) Hospitalist ROS - Medication Medications: Active Medications Generic Name Dose Route Start Last Admin Trade Name Freq PRN Reason Stop Dose Admin Acetaminophen 650 mg 06/24/20 04:38 06/25/20 15:33 Acetaminophen 325 Mg Tab PO 650 mg Q4H PRN Administration Headache/Fever or Pain Amlodipine Besylate 10 mg 06/26/20 09:00 06/26/20 10:50 Amlodipine 10 Mg Tab PO Not Given DAILY SARA Aspirin 325 mg 06/24/20 09:00 06/26/20 10:29 Aspirin 325 Mg Enteric Coated Tablet PO 325 mg DAILY SARA Administration Atorvastatin Calcium 40 mg 06/23/20 21:00 06/25/20 20:47 Atorvastatin Calcium 40 Mg Tab PO 40 mg HS SARA Administration Cyproheptadine HCl 4 mg 06/25/20 21:00 06/26/20 10:29 Cyproheptadine 4 Mg Tab PO 4 mg BID SARA Administration Famotidine 20 mg 06/24/20 21:00 06/25/20 20:46 Famotidine 20 Mg Tab PO 20 mg QPM SARA Administration Folic Acid 1 mg 06/24/20 09:00 06/26/20 10:29 Folic Acid 1 Mg Tab PO 1 mg DAILY SARA Administration Iron/Minerals/Multivitamins 1 tab 06/24/20 09:00 06/26/20 10:29 Multivitamin W/ Minerals 1 Tab PO 1 tab DAILY SARA Administration Magnesium Oxide 400 mg 06/24/20 09:00 06/26/20 10:29 Magnesium Oxide 400 Mg Tab PO 400 mg DAILY SARA Administration Thiamine HCl 100 mg 06/24/20 09:00 06/26/20 10:29 Thiamine 100 Mg Tab PO 100 mg DAILY SARA Administration - Exam General Appearance: NAD, awake alert Eye: PERRL, anicteric sclera ENT: normocephalic atraumatic, no oropharyngeal lesions Neck: supple, symmetric, no JVD, no thyromegaly, no lymphadenopathy Heart: RRR, no murmur, no gallops, no rubs, normal peripheral pulses Heart - other findings: S1, S2 Respiratory: CTAB, no wheezes, no rales, no ronchi, normal chest expansion Gastrointestinal: soft, non-tender, non-distended, normal bowel sounds Extremities: no cyanosis Neurological: cranial nerve grossly intact, no new deficit Neurological - other findings: L-sided weakness Musculoskeletal: normal tone, generalized weakness, diffuse muscle atrophy Psychiatric: A&O x 3, flat affect Hosp A/P (1) Acute CVA (cerebrovascular accident) Code(s): I63.9 - CEREBRAL INFARCTION, UNSPECIFIED Status: Acute Plan: Continue general stroke protocol, ASA/Lipitor/PT/OT (2) Hyperkalemia Code(s): E87.5 - HYPERKALEMIA Status: Acute Plan: Resolved (3) Acute renal failure Status: Acute Plan: Improved, continue supportive mgmt, avoid nephrotoxic meds and limit contrast (4) Hyponatremia Code(s): E87.1 - HYPO-OSMOLALITY AND HYPONATREMIA Status: Acute Plan: Chronic component given ETOH abuse (5) Alcohol abuse Code(s): F10.10 - ALCOHOL ABUSE, UNCOMPLICATED Status: Chronic Plan: Continue ASE protocol, Folate/MVI/Thiamine (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, NOT ELSEWHERE CLASSIFIED Status: Chronic Plan: Likely will need eventual amputation, local care (7) Generalized weakness Code(s): R53.1 - WEAKNESS Status: Chronic (8) Malnutrition Code(s): E46 - UNSPECIFIED PROTEIN-CALORIE MALNUTRITION Status: Chronic Plan: Add Ensure Enlive BID (9) Tobacco abuse Code(s): Z72.0 - TOBACCO USE Status: Chronic - Plan PT/OT, social media executive, speech therapy, out of bed/ambulate, DVT proph w/SCDs Stable currently Continue ASA/Lipitor ASE protocol MVI/Thiamine/Folate Resume home BP meds Consult General surgery regarding gangrenous toes CM for dispo planning SNF/Rehab/HH OOB with PT AM lab: BMP
--- NOTE | 2020-06-26 16:39 | PQF ---
CLINICAL DOCUMENTATION CLARIFICATION FORM: Dear Dr. Desir Date: 06/26/2020 Please exercise your independent, professional judgment in responding to the clarification form. Clinical indicators are provided on the bottom of this form for your review. Please check appropriate box(es): [ ] Mild Protein Calorie Malnutrition [ x ] Moderate Protein Calorie Malnutrition [ ] Severe Protein Calorie Malnutrition [ ] Other Malnutrition (please specify) [ ] Other diagnosis [ ] Unable to determine In addition, please specify: Present on Admission (POA): [ x ] Yes [ ] No [ ] Unable to determine For continuity of documentation, please document condition throughout progress notes and discharge summary. Thank You. To be completed by CDI/Coding staff for physician review: CLINICAL INDICATORS - SIGNS / SYMPTOMS / LABS / RESULTS AND LOCATION IN MR *H&P 06/23 (Rosita) A/P: Chronic Generalized weakness. Associated with malnutrition, deconditioning, alcoholism and dehydration. Chronic malnutrition. Thin and frail. Reduced PO intake. *06/25 pn (Thang) Exam: Musculoskeletal: generalized weakness, diffuse muscle atrophy A/P: Malnutrition. unspecified protein-calorie malnutrition *06/25 Soil Conservation Teacher Assessment: Nutrition Dx: Malnutrition related to alcohol abuse/ predicted inadequate nutrition intake. BMI 15.7, moderate muscle loss in temporal region, predicted moderate-severe muscle loss in extremities (unable to determine severity at this time) RISK FACTORS / RESULTS AND LOCATION IN MR H&P 06/23 (Becker) PMH Alcohol abuse. HTN. General deconditioning. HTN. Heavy tobacco use 06/25 pn (Genaro) hx significant for malnutrition. TREATMENT / RESULTS AND LOCATION IN MR H&P 06/23 (Becker) A/P: Soil Conservation Teacher consult ordered. 06/25 Order: Supp: Mighty Shake BID 06/26 pn (Thang) Add Ensure Enlive BID Moderate Malnutrition (in acute illness) Energy Intake: <75% of estimated energy requirement for > 7 days Weight Loss: 1-2%/1 week; 5%/ 1 month; 7.5%/3 months Other: mild body fat loss; mild muscle mass loss; mild fluid accumulation; Severe Malnutrition (in acute illness) Energy Intake: = 50% of estimated energy requirement for = 5 days Weight Loss: >2%/1 week; >5%/1 month; >7.5%/3 months Other: moderate body fat loss; moderate muscle mass loss; moderate- severe fluid accumulation; measurably reduced photographer still strength Moderate Malnutrition (in chronic illness) Energy Intake: <75% of estimated energy requirement for =1 month Weight Loss: 5%/1 month; 7.5%/3 months; 10%/6 months; 20%/1 year Other: mild body fat loss; mild muscle mass loss; mild fluid accumulation Severe Malnutrition (in chronic illness) Energy Intake: =75% of estimated energy requirement for =1 month Weight Loss: >5%/1 month; >7.5%/3 months; >10%/6 months; >20%/1 year Other: severe body fat loss; severe muscle mass loss; severe fluid accumulation; measurably reduced photographer still strength Thank you, Jessica Shaw RN, [email or web address] This is a permanent part of the Medical Record [facility]
[2020-06-26] MEDS: Famotidine 20 MG TAB PO SCH (21:32)
[2020-06-26] MEDS: Atorvastatin Calcium 40 MG TAB PO SCH (21:32)
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
--- NOTE | 2020-06-27 07:31 | PDOC.HOSPP ---
- Subjective Encounter Date: 06/27/20 Encounter Time: 11:00 Subjective: Patient sleeping. Arousable and no complaints. - Objective Vital Signs & Weight: Vital Signs (12 hours) Temp Pulse Resp BP BP Pulse Ox 06/27/20 04:00 98.7 F 100 14 116/77 91 L 06/27/20 03:00 116/77 06/26/20 23:59 99.2 F 102 H 18 117/82 99 06/26/20 23:00 117/82 06/26/20 20:00 98.8 F 95 18 107/67 98 Weight Admit Weight 106 lb 4.8 oz Weight 106 lb 4.8 oz I&O: 06/26/20 06/27/20 06/28/20 06:59 06:59 06:59 Intake Total 951 300 Balance 951 300 Result Diagrams: 06/24/20 01:16 06/27/20 08:23 Hospitalist ROS - Review of Systems Constitutional: denies: fever, chills Respiratory: denies: cough, shortness of breath Cardiovascular: denies: chest pain, palpitations Gastrointestinal: denies: nausea, vomiting, abdominal pain - Medication Medications: Active Medications Generic Name Dose Route Start Last Admin Trade Name Freq PRN Reason Stop Dose Admin Acetaminophen 650 mg 06/24/20 04:38 06/25/20 15:33 Acetaminophen 325 Mg Tab PO 650 mg Q4H PRN Administration Headache/Fever or Pain Amlodipine Besylate 10 mg 06/26/20 09:00 06/26/20 10:50 Amlodipine 10 Mg Tab PO Not Given DAILY SARA Aspirin 325 mg 06/24/20 09:00 06/26/20 10:29 Aspirin 325 Mg Enteric Coated Tablet PO 325 mg DAILY SARA Administration Atorvastatin Calcium 40 mg 06/23/20 21:00 06/26/20 21:32 Atorvastatin Calcium 40 Mg Tab PO 40 mg HS SARA Administration Cyproheptadine HCl 4 mg 06/25/20 21:00 06/26/20 21:32 Cyproheptadine 4 Mg Tab PO 4 mg BID SARA Administration Famotidine 20 mg 06/24/20 21:00 06/26/20 21:32 Famotidine 20 Mg Tab PO 20 mg QPM SARA Administration Folic Acid 1 mg 06/24/20 09:00 06/26/20 10:29 Folic Acid 1 Mg Tab PO 1 mg DAILY SARA Administration Iron/Minerals/Multivitamins 1 tab 06/24/20 09:00 06/26/20 10:29 Multivitamin W/ Minerals 1 Tab PO 1 tab DAILY SARA Administration Magnesium Oxide 400 mg 06/24/20 09:00 06/26/20 10:29 Magnesium Oxide 400 Mg Tab PO 400 mg DAILY SARA Administration Thiamine HCl 100 mg 06/24/20 09:00 06/26/20 10:29 Thiamine 100 Mg Tab PO 100 mg DAILY SARA Administration - Exam General Appearance: NAD General - other findings: sleeping, arousable ENT: moist mucosa Heart: RRR, no murmur, no gallops, no rubs Respiratory: CTAB, no wheezes, no rales, no ronchi Gastrointestinal: soft, non-tender, non-distended, normal bowel sounds Psychiatric: normal affect, normal behavior Hosp A/P (1) Acute CVA (cerebrovascular accident) Code(s): I63.9 - CEREBRAL INFARCTION, UNSPECIFIED Status: Acute (2) Acute renal failure Status: Acute (3) Hyperkalemia Code(s): E87.5 - HYPERKALEMIA Status: Resolved (4) Alcohol abuse Code(s): F10.10 - ALCOHOL ABUSE, UNCOMPLICATED Status: Chronic (5) COPD (chronic obstructive pulmonary disease) Status: Chronic (6) Generalized weakness Code(s): R53.1 - WEAKNESS Status: Chronic (7) Hypertension Code(s): I10 - ESSENTIAL (PRIMARY) HYPERTENSION Status: Chronic (8) Malnutrition Code(s): E46 - UNSPECIFIED PROTEIN-CALORIE MALNUTRITION Status: Chronic (9) Tobacco abuse Code(s): Z72.0 - TOBACCO USE Status: Chronic (10) Hyponatremia Code(s): E87.1 - HYPO-OSMOLALITY AND HYPONATREMIA Status: Acute (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 Consulted General surgery regarding gangrenous toes, Dr. Gibbs doesn't recommend surgery at this time, just wound care CM for dispo planning SNF/Rehab/HH OOB with PT
[2020-06-27 08:48] LABS: Anion Gap 13 mmol/L (10-20); BUN (Urea Nitrogen) 21 mg/dL (8.4-25.7); Calc. Creatinine Clearance 36 mL/min (70-130); Calcium 9.2 mg/dL (7.8-10.44); Carbon Dioxide 28 mmol/L (23-31); Chloride 97 mmol/L (98-107); Estimated GFR-MDRD 63; Glucose 90 mg/dL (80-115); Potassium 3.9 mmol/L (3.5-5.1); Sodium 134 mmol/L (136-145)
[2020-06-27] MEDS: Multivitamin W/ Minerals 1 TAB PO SCH (09:18)
[2020-06-27] MEDS: Magnesium Oxide 400 MG TAB PO SCH (09:19)
[2020-06-27] MEDS: Cyproheptadine 4 MG TAB PO SCH ×2 (09:19→21:00)
[2020-06-27] MEDS: Amlodipine 10 MG TAB PO SCH (09:19)
[2020-06-27] MEDS: Folic Acid 1 MG TAB PO SCH (09:19)
[2020-06-27] MEDS: Aspirin 325 mg Enteric Coated Tablet PO SCH (09:19)
[2020-06-27] MEDS: Thiamine 100 MG TAB PO SCH (09:19)
[2020-06-27] MEDS: Acetaminophen 325 MG TAB PO PRN (13:29)
--- NOTE | 2020-06-27 15:32 | PDOC.NEUPN ---
- Subjective Encounter Date: 06/27/20 Subjective: Patient sleeping but was able to open his eyes and knows his name. - Objective Vital Signs & Weight: Vital Signs (12 hours) Temp Pulse Resp BP BP BP Pulse Ox 06/27/20 11:17 98.3 F 113 H 16 112/60 98 06/27/20 11:00 112/60 06/27/20 09:19 96 06/27/20 08:00 98 F 96 16 133/89 98 06/27/20 07:00 133/89 06/27/20 04:00 98.7 F 100 14 116/77 91 L Weight Admit Weight 106 lb 4.8 oz Weight 106 lb 4.8 oz I&O: 06/26/20 06/27/20 06/28/20 06:59 06:59 06:59 Intake Total 951 300 Balance 951 300 Result Diagrams: 06/24/20 01:16 06/27/20 08:23 Radiology Reviewed by me: Yes EKG Reviewed by me: Yes ROS - Review of Systems Constitutional: denies: fever, chills, sweats, weakness, malaise, other Eyes: denies: pain, vision change, conjunctivae inflammation, eyelid inflammation, redness, other ENT: denies: ear pain, ear discharge, nose pain, nose discharge, nose congestion, mouth pain, mouth swelling, throat pain, throat swelling, other All Systems: All other systems reviewed; all pertinent +/- noted in HPI/Subj - Medication Medications: Active Medications Generic Name Dose Route Start Last Admin Trade Name Freq PRN Reason Stop Dose Admin Acetaminophen 650 mg 06/24/20 04:38 06/27/20 13:29 Acetaminophen 325 Mg Tab PO 650 mg Q4H PRN Administration Headache/Fever or Pain Amlodipine Besylate 10 mg 06/26/20 09:00 06/27/20 09:19 Amlodipine 10 Mg Tab PO 10 mg DAILY SARA Administration Aspirin 325 mg 06/24/20 09:00 06/27/20 09:19 Aspirin 325 Mg Enteric Coated Tablet PO 325 mg DAILY SARA Administration Atorvastatin Calcium 40 mg 06/23/20 21:00 06/26/20 21:32 Atorvastatin Calcium 40 Mg Tab PO 40 mg HS SARA Administration Cyproheptadine HCl 4 mg 06/25/20 21:00 06/27/20 09:19 Cyproheptadine 4 Mg Tab PO 4 mg BID SARA Administration Famotidine 20 mg 06/24/20 21:00 06/26/20 21:32 Famotidine 20 Mg Tab PO 20 mg QPM SARA Administration Folic Acid 1 mg 06/24/20 09:00 06/27/20 09:19 Folic Acid 1 Mg Tab PO 1 mg DAILY SARA Administration Iron/Minerals/Multivitamins 1 tab 06/24/20 09:00 06/27/20 09:18 Multivitamin W/ Minerals 1 Tab PO 1 tab DAILY SARA Administration Magnesium Oxide 400 mg 06/24/20 09:00 06/27/20 09:19 Magnesium Oxide 400 Mg Tab PO 400 mg DAILY SARA Administration Thiamine HCl 100 mg 06/24/20 09:00 06/27/20 09:19 Thiamine 100 Mg Tab PO 100 mg DAILY SARA Administration - Exam General Appearance: NAD Eye: PERRL, anicteric sclera ENT: normocephalic atraumatic Neck: supple Respiratory: CTAB Cardiovascular: RRR Gastrointestinal: soft Extremities: no cyanosis Skin: normal turgor Neurological: no new deficit Musculoskeletal: generalized weakness PSYCH: normal affect, normal behavior, oriented to person, oriented to place Results - Labs Result Diagrams: 06/24/20 01:16 06/27/20 08:23 Lab results: WBC 5.4 thou/uL (4.8-10.8) 06/24/20 01:16 Hgb 12.2 g/dL (14.0-18.0) L 06/24/20 01:16 Hct 34.8 % (42.0-52.0) L 06/24/20 01:16 MCV 103.0 fL (78.0-98.0) H 06/24/20 01:16 Plt Count 266 thou/uL (130-400) 06/24/20 01:16 Neutrophils % 66.4 % (42.0-75.0) 06/24/20 01:16 Sodium 134 mmol/L (136-145) L 06/27/20 08:23 Potassium 3.9 mmol/L (3.5-5.1) 06/27/20 08:23 Chloride 97 mmol/L (98-107) L 06/27/20 08:23 Carbon Dioxide 28 mmol/L (23-31) 06/27/20 08:23 BUN 21 mg/dL (8.4-25.7) 06/27/20 08:23 Creatinine 1.38 mg/dL (0.7-1.3) H 06/27/20 08:23 Glucose 90 mg/dL (80-115) 06/27/20 08:23 Lactic Acid 1.1 mmol/L (0.5-2.2) 06/23/20 16:47 Calcium 9.2 mg/dL (7.8-10.44) 06/27/20 08:23 Total Bilirubin 0.3 mg/dL (0.2-1.2) 06/26/20 04:47 AST 21 U/L (5-34) 06/26/20 04:47 ALT 10 U/L (8-55) 06/26/20 04:47 Alkaline Phosphatase 67 U/L (40-110) 06/26/20 04:47 Troponin I 0.010 ng/mL (< 0.028) 06/23/20 16:47 Serum Total Protein 7.0 g/dL (5.8-8.1) 06/26/20 04:47 Albumin 3.1 g/dL (3.4-4.8) L 06/26/20 04:47 Lipase 162 U/L (8-78) H 06/24/20 01:16 Urine Ketones Negative mg/dL (Negative) 06/23/20 17:36 Urine Blood Negative (Negative) 06/23/20 17:36 Urine Nitrite Negative (Negative) 06/23/20 17:36 Ur Leukocyte Esterase 500 Ming/uL (Negative) A 06/23/20 17:36 Urine RBC 4-6 HPF (0-3) A 06/23/20 17:36 Urine WBC Greater than 50 HPF (0-3) A 06/23/20 17:36 Ur Squamous Epith Cells 0-3 HPF (0-3) 06/23/20 17:36 Urine Bacteria Rare-Few HPF (None Seen) 06/23/20 17:36 PN A/P (1) Acute CVA (cerebrovascular accident) Code(s): I63.9 - CEREBRAL INFARCTION, UNSPECIFIED Status: Acute (2) Acute renal failure Status: Acute (3) Alcohol abuse Code(s): F10.10 - ALCOHOL ABUSE, UNCOMPLICATED Status: Chronic (4) COPD (chronic obstructive pulmonary disease) Status: Chronic (5) Generalized weakness Code(s): R53.1 - WEAKNESS Status: Chronic (6) Hypertension Code(s): I10 - ESSENTIAL (PRIMARY) HYPERTENSION Status: Chronic (7) Malnutrition Code(s): E46 - UNSPECIFIED PROTEIN-CALORIE MALNUTRITION Status: Chronic (8) Tobacco abuse Code(s): Z72.0 - TOBACCO USE Status: Chronic - Plan Daily Plan: PT/OT, speech therapy, DVT proph w/SCDs 65-year-old male with medical history significant for malnutrition, alcohol abuse, tobacco abuse presented with confusion and left-sided weakness. MRI of the brain consistent with acute infarction. Patient is alert and oriented x 2 but confused at baseline and is unable to carry normal conversation. Surgery consult completed and patient is not deemed to be a candidate for surgical intervention at this time for gangrenous toes MRI of the brain reviewed which was consistent with acute infarct in the right thalamus EEG reviewed which was negative for seizure activity. Telemetry showed an episode of junctional arrhythmia. Cardiology is on board. 2D echo showed left ventricle ejection fraction 55 to 60%. No thrombus or PFO. CTA head and neck results reviewed which were abnormal. Appreciate vascular surgery recommendations. No surgical intervention needed at this time. Neurochecks every 4 hours. Permissive control of blood pressure at this time. Strict control of blood glucose. Continue home medications. Continue aspirin and high intensity statin for secondary stroke prevention. PT/OT/speech Patient counseled about alcohol and tobacco abuse.[facility] protocol DVT prophylaxis. Case management on board regarding discharge planning. Stroke work-up completed. Continue medical management per primary team
[2020-06-27] MEDS ORDERED: Sodium Chloride 0.9% 500 ML IV SCH (16:30)
--- NOTE | 2020-06-27 19:30 | PRG ---
DATE OF SERVICE: 06/27/2020 SUBJECTIVE: The patient was seen and examined, noted with the following vital signs. OBJECTIVE: VITAL SIGNS: Afebrile. Temperature 98.7, pulse 111, respiratory rate of 16, O2 saturation 96%, with blood pressure of 103/58. HEENT: Unremarkable. CARDIOVASCULAR SYSTEM: First and second heart sounds were heard. RESPIRATORY SYSTEM: Clear to auscultation. DIGESTIVE SYSTEM: Revealed a benign abdomen with positive bowel sounds. EXTREMITIES: No peripheral edema. SKIN: No new gross rash. LYMPHATICS: No peripheral lymphadenopathy. IMPRESSION: Acute on chronic kidney disease, which seems to most likely resolve, back to baseline. PLAN: 1. We will continue current renal supportive measures. 2. Further management to be dependent on the clinical course. Job ID: [id number]
[2020-06-27] MEDS: Famotidine 20 MG TAB PO SCH (21:00)
[2020-06-27] MEDS: Atorvastatin Calcium 40 MG TAB PO SCH (21:00)
--- NOTE | 2020-06-28 07:23 | PDOC.HOSPP ---
- Subjective Encounter Date: 06/28/20 Encounter Time: 10:00 Subjective: Patient feeling weak and a little dizzy sitting up with PT. BP dropped to 80s systolic on sitting. Had a low BP last night as well improved with fluids. No other complaints. - Objective Vital Signs & Weight: Vital Signs (12 hours) Temp Pulse Resp BP BP Pulse Ox 06/28/20 04:27 107/69 06/28/20 04:19 99.6 F 109 H 18 107/69 98 06/27/20 20:58 98.4 F 106 H 13 98/68 98/68 98 Weight Admit Weight 106 lb 4.8 oz Weight 106 lb 4.8 oz I&O: 06/27/20 06/28/20 06/29/20 06:59 06:59 06:59 Intake Total 300 1095 128 Balance 300 1095 128 Result Diagrams: 06/24/20 01:16 06/27/20 08:23 Hospitalist ROS - Review of Systems Constitutional: reports: weakness. denies: fever, chills Respiratory: denies: cough, shortness of breath Cardiovascular: denies: chest pain, palpitations Gastrointestinal: denies: nausea, vomiting, abdominal pain - Medication Medications: Active Medications Generic Name Dose Route Start Last Admin Trade Name Freq PRN Reason Stop Dose Admin Acetaminophen 650 mg 06/24/20 04:38 06/27/20 13:29 Acetaminophen 325 Mg Tab PO 650 mg Q4H PRN Administration Headache/Fever or Pain Amlodipine Besylate 10 mg 06/26/20 09:00 06/27/20 09:19 Amlodipine 10 Mg Tab PO 10 mg DAILY SARA Administration Aspirin 325 mg 06/24/20 09:00 06/27/20 09:19 Aspirin 325 Mg Enteric Coated Tablet PO 325 mg DAILY SARA Administration Atorvastatin Calcium 40 mg 06/23/20 21:00 06/27/20 21:00 Atorvastatin Calcium 40 Mg Tab PO 40 mg HS SARA Administration Cyproheptadine HCl 4 mg 06/25/20 21:00 06/27/20 21:00 Cyproheptadine 4 Mg Tab PO 4 mg BID SARA Administration Famotidine 20 mg 06/24/20 21:00 06/27/20 21:00 Famotidine 20 Mg Tab PO 20 mg QPM SARA Administration Folic Acid 1 mg 06/24/20 09:00 06/27/20 09:19 Folic Acid 1 Mg Tab PO 1 mg DAILY SARA Administration Iron/Minerals/Multivitamins 1 tab 06/24/20 09:00 06/27/20 09:18 Multivitamin W/ Minerals 1 Tab PO 1 tab DAILY SARA Administration Magnesium Oxide 400 mg 06/24/20 09:00 06/27/20 09:19 Magnesium Oxide 400 Mg Tab PO 400 mg DAILY SARA Administration Sodium Chloride 10 ml 06/23/20 18:44 06/27/20 21:01 Flush - Normal Saline 10 Ml Syringe IVF 10 ml Q12HR PRN Administration Saline Flush Thiamine HCl 100 mg 06/24/20 09:00 06/27/20 09:19 Thiamine 100 Mg Tab PO 100 mg DAILY SARA Administration - Exam General Appearance: NAD, awake alert ENT: moist mucosa Heart: RRR, no murmur, no gallops, no rubs Respiratory: CTAB, no wheezes, no rales, no ronchi Gastrointestinal: soft, non-tender, non-distended, normal bowel sounds Psychiatric: normal affect, normal behavior Hosp A/P (1) Acute CVA (cerebrovascular accident) Code(s): I63.9 - CEREBRAL INFARCTION, UNSPECIFIED Status: Acute (2) Acute renal failure Status: Acute (3) Hyperkalemia Code(s): E87.5 - HYPERKALEMIA Status: Resolved (4) Alcohol abuse Code(s): F10.10 - ALCOHOL ABUSE, UNCOMPLICATED Status: Chronic (5) COPD (chronic obstructive pulmonary disease) Status: Chronic (6) Generalized weakness Code(s): R53.1 - WEAKNESS Status: Chronic (7) Hypertension Code(s): I10 - ESSENTIAL (PRIMARY) HYPERTENSION Status: Chronic (8) Malnutrition Code(s): E46 - UNSPECIFIED PROTEIN-CALORIE MALNUTRITION Status: Chronic (9) Tobacco abuse Code(s): Z72.0 - TOBACCO USE Status: Chronic (10) Hyponatremia Code(s): E87.1 - HYPO-OSMOLALITY AND HYPONATREMIA Status: Acute (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 Dropped to 70systolic last night but asymptomatic, improved after fluids Holding Amlodipine. Give more fluids this AM and start saline running at 50mL/hr. Continue ASA/Lipitor ASE protocol MVI/Thiamine/Folate BP low on Amlodipine, Not requiring Losartan/HCTZ. Consulted General surgery regarding gangrenous toes, Dr. Gibbs doesn't recommend surgery at this time, just wound care CM for dispo planning SNF/Rehab/HH OOB with PT
[2020-06-28] MEDS: Magnesium Oxide 400 MG TAB PO SCH (08:56)
[2020-06-28] MEDS: Aspirin 325 mg Enteric Coated Tablet PO SCH (08:56)
[2020-06-28] MEDS: Cyproheptadine 4 MG TAB PO SCH ×2 (08:56→21:05)
[2020-06-28] MEDS: Thiamine 100 MG TAB PO SCH (08:56)
[2020-06-28] MEDS: Folic Acid 1 MG TAB PO SCH (08:56)
[2020-06-28] MEDS: Multivitamin W/ Minerals 1 TAB PO SCH (08:56)
[2020-06-28] MEDS ORDERED: Sodium Chloride 0.9% 500 ML IV SCH (10:45)
[2020-06-28] MEDS: Sodium Chloride 0.9% 1,000 ML IV SCH (11:34)
--- NOTE | 2020-06-28 20:20 | PRG ---
DATE OF SERVICE: 06/28/2020 SUBJECTIVE: The patient seen with no new complaint noted with the following vital signs. OBJECTIVE: VITAL SIGNS: Afebrile, temperature 98.9. Pulse 92, respiratory rate of 14 to 17, blood pressure of 117/70. HEENT: Unremarkable. CARDIOVASCULAR SYSTEM: First and second heart sounds were heard. RESPIRATORY SYSTEM: Clear to auscultation. DIGESTIVE SYSTEM: Revealed a benign abdomen. Positive bowel sounds. EXTREMITIES: No peripheral edema. SKIN: No new gross rash. LYMPHATICS: No peripheral lymphadenopathy. LABORATORY INVESTIGATION: Showed a creatinine down to 1.38 yesterday. IMPRESSION: Acute on chronic kidney disease, much improved. PLAN: Continue current renal supportive treatment. Job ID: [id number]
[2020-06-28] MEDS: Famotidine 20 MG TAB PO SCH (21:04)
[2020-06-28] MEDS: Atorvastatin Calcium 40 MG TAB PO SCH (21:05)
[2020-06-29 05:05] LABS: Anion Gap 13 mmol/L (10-20); BUN (Urea Nitrogen) 29 mg/dL (8.4-25.7); Calc. Creatinine Clearance 34 mL/min (70-130); Calcium 9.2 mg/dL (7.8-10.44); Carbon Dioxide 22 mmol/L (23-31); Chloride 104 mmol/L (98-107); Estimated GFR-MDRD 59; Glucose 108 mg/dL (80-115); Sodium 135 mmol/L (136-145)
[2020-06-29 05:15] LABS: #Eosinphils 0.4 thou/uL (0.0-0.7); #Lymphocytes 1.5 thou/uL (1.20-3.40); #Monocytes 0.6 thou/uL (0.11-0.59); #Neutrophils 5.8 thou/uL (1.40-6.50); %Basophils 0.3 % (0.0-1.0); %Eosinophils 4.4 % (0.0-10.0); %Lymphocytes 18.1 % (21.0-51.0); %Neutrophils 70.2 % (42.0-75.0); Hemoglobin 11.3 g/dL (14.0-18.0); Mean Corpuscular HGB CONC 33.4 g/dL (32.0-36.0); Mean Corpuscular Hemoglobin 35.5 pg (27.0-31.0); Mean Platelet Volume 6.7 fL (7.4-10.4); Platelet Count 314 thou/uL (130-400); RBC Distribution Width 13.1 % (11.5-14.5); Red Blood Cell (RBC) Count 3.18 mill/uL (4.70-6.10); White Blood Cell (WBC) Count 8.3 thou/uL (4.8-10.8)
--- NOTE | 2020-06-29 07:30 | PDOC.HOSPP ---
- Subjective Encounter Date: 06/29/20 Encounter Time: 09:30 Subjective: Patient denies complaints. States he hasn't had as much dizziness when sitting/standing up now. - Objective Vital Signs & Weight: Vital Signs (12 hours) Temp Pulse Resp BP BP Pulse Ox 06/29/20 04:04 114/72 06/29/20 03:36 99.1 F 105 H 20 114/72 98 06/28/20 23:27 99.3 F 100 20 113/75 98 06/28/20 19:29 98.4 F 102 H 20 98/59 L 98 Weight Admit Weight 106 lb 4.8 oz Weight 106 lb 4.8 oz I&O: 06/28/20 06/29/20 06/30/20 06:59 06:59 06:59 Intake Total 1095 2575.5 Balance 1095 2575.5 Result Diagrams: 06/29/20 04:28 06/29/20 04:28 Hospitalist ROS - Review of Systems Constitutional: reports: weakness. denies: fever, chills Respiratory: denies: cough, shortness of breath Cardiovascular: denies: chest pain, palpitations Gastrointestinal: denies: nausea, vomiting, abdominal pain - Medication Medications: Active Medications Generic Name Dose Route Start Last Admin Trade Name Freq PRN Reason Stop Dose Admin Acetaminophen 650 mg 06/24/20 04:38 06/27/20 13:29 Acetaminophen 325 Mg Tab PO 650 mg Q4H PRN Administration Headache/Fever or Pain Amlodipine Besylate 10 mg 06/26/20 09:00 06/27/20 09:19 Amlodipine 10 Mg Tab PO 10 mg DAILY SARA Administration Aspirin 325 mg 06/24/20 09:00 06/28/20 08:56 Aspirin 325 Mg Enteric Coated Tablet PO 325 mg DAILY SARA Administration Atorvastatin Calcium 40 mg 06/23/20 21:00 06/28/20 21:05 Atorvastatin Calcium 40 Mg Tab PO 40 mg HS SARA Administration Cyproheptadine HCl 4 mg 06/25/20 21:00 06/28/20 21:05 Cyproheptadine 4 Mg Tab PO 4 mg BID SARA Administration Famotidine 20 mg 06/24/20 21:00 06/28/20 21:04 Famotidine 20 Mg Tab PO 20 mg QPM SARA Administration Folic Acid 1 mg 06/24/20 09:00 06/28/20 08:56 Folic Acid 1 Mg Tab PO 1 mg DAILY SARA Administration Sodium Chloride 1,000 mls @ 50 mls/hr 06/28/20 10:45 06/28/20 11:34 Normal Saline 0.9% IV 1,000 mls .Q20H SARA Administration Iron/Minerals/Multivitamins 1 tab 06/24/20 09:00 06/28/20 08:56 Multivitamin W/ Minerals 1 Tab PO 1 tab DAILY SARA Administration Magnesium Oxide 400 mg 06/24/20 09:00 06/28/20 08:56 Magnesium Oxide 400 Mg Tab PO 400 mg DAILY SARA Administration Sodium Chloride 10 ml 06/23/20 18:44 06/27/20 21:01 Flush - Normal Saline 10 Ml Syringe IVF 10 ml Q12HR PRN Administration Saline Flush Thiamine HCl 100 mg 06/24/20 09:00 06/28/20 08:56 Thiamine 100 Mg Tab PO 100 mg DAILY SARA Administration - Exam General Appearance: NAD, awake alert ENT: moist mucosa Heart: RRR, no murmur, no gallops, no rubs Respiratory: CTAB, no wheezes, no rales, no ronchi Gastrointestinal: soft, non-tender, non-distended, normal bowel sounds Psychiatric: normal affect, normal behavior Hosp A/P (1) Acute CVA (cerebrovascular accident) Code(s): I63.9 - CEREBRAL INFARCTION, UNSPECIFIED Status: Acute (2) Acute renal failure Status: Acute (3) Hyperkalemia Code(s): E87.5 - HYPERKALEMIA Status: Resolved (4) Alcohol abuse Code(s): F10.10 - ALCOHOL ABUSE, UNCOMPLICATED Status: Chronic (5) COPD (chronic obstructive pulmonary disease) Status: Chronic (6) Generalized weakness Code(s): R53.1 - WEAKNESS Status: Chronic (7) Hypertension Code(s): I10 - ESSENTIAL (PRIMARY) HYPERTENSION Status: Chronic (8) Malnutrition Code(s): E46 - UNSPECIFIED PROTEIN-CALORIE MALNUTRITION Status: Chronic (9) Tobacco abuse Code(s): Z72.0 - TOBACCO USE Status: Chronic (10) Hyponatremia Code(s): E87.1 - HYPO-OSMOLALITY AND HYPONATREMIA Status: Acute (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 Dropped to 70systolic one night but asymptomatic, improved after fluids Holding Amlodipine. Gave more fluids Monday and started saline running at 50mL/hr. BP better this AM. Patient has been mildly tachycardic most of his admission. Will check orthostatics. If continue to drop may need to check cortisol levels. Continue ASA/Lipitor ASE protocol MVI/Thiamine/Folate BP low on Amlodipine, being held, Not requiring Losartan/HCTZ. Consulted General surgery regarding gangrenous toes, Dr. Gibbs doesn't recommend surgery at this time, just wound care CM for dispo planning SNF/Rehab/HH OOB with PT
[2020-06-29] MEDS: Aspirin 325 mg Enteric Coated Tablet PO SCH (10:52)
[2020-06-29] MEDS: Sodium Chloride 0.9% 1,000 ML IV SCH (10:52)
[2020-06-29] MEDS: Magnesium Oxide 400 MG TAB PO SCH (10:53)
[2020-06-29] MEDS: Multivitamin W/ Minerals 1 TAB PO SCH (10:53)
[2020-06-29] MEDS: Folic Acid 1 MG TAB PO SCH (10:53)
[2020-06-29] MEDS: Thiamine 100 MG TAB PO SCH (10:53)
[2020-06-29] MEDS: Cyproheptadine 4 MG TAB PO SCH ×2 (10:53→21:21)
--- NOTE | 2020-06-29 12:51 | PDOC.NEUPN ---
- Subjective Encounter Date: 06/29/20 Subjective: Is much better today and denies any new complaints. Sister is at bedside. - Objective Vital Signs & Weight: Vital Signs (12 hours) Temp Pulse Resp BP BP BP Pulse Ox 06/29/20 12:13 98.3 F 109 H 13 124/95 H 98 06/29/20 11:25 123/77 124/95 H 06/29/20 08:06 98.9 F 106 H 19 112/72 99 06/29/20 07:56 112/72 06/29/20 04:04 114/72 06/29/20 03:36 99.1 F 105 H 20 114/72 98 Weight Admit Weight 106 lb 4.8 oz Weight 106 lb 4.8 oz I&O: 06/28/20 06/29/20 06/30/20 06:59 06:59 06:59 Intake Total 1095 2575.5 476 Balance 1095 2575.5 476 Result Diagrams: 06/29/20 04:28 06/29/20 04:28 Radiology Reviewed by me: Yes EKG Reviewed by me: Yes ROS - Review of Systems Constitutional: denies: fever, chills, sweats, weakness, malaise, other Eyes: denies: pain, vision change, conjunctivae inflammation, eyelid inflammation, redness, other ENT: denies: ear pain, ear discharge, nose pain, nose discharge, nose congestion, mouth pain, mouth swelling, throat pain, throat swelling, other Respiratory: denies: cough, dry, shortness of breath, hemoptysis, SOB with excertion, pleuritic pain, sputum, wheezing, other All Systems: All other systems reviewed; all pertinent +/- noted in HPI/Subj - Medication Medications: Active Medications Generic Name Dose Route Start Last Admin Trade Name Freq PRN Reason Stop Dose Admin Acetaminophen 650 mg 06/24/20 04:38 06/27/20 13:29 Acetaminophen 325 Mg Tab PO 650 mg Q4H PRN Administration Headache/Fever or Pain Amlodipine Besylate 10 mg 06/26/20 09:00 06/27/20 09:19 Amlodipine 10 Mg Tab PO 10 mg DAILY SARA Administration Aspirin 325 mg 06/24/20 09:00 06/29/20 10:52 Aspirin 325 Mg Enteric Coated Tablet PO 325 mg DAILY SARA Administration Atorvastatin Calcium 40 mg 06/23/20 21:00 06/28/20 21:05 Atorvastatin Calcium 40 Mg Tab PO 40 mg HS SARA Administration Cyproheptadine HCl 4 mg 06/25/20 21:00 06/29/20 10:53 Cyproheptadine 4 Mg Tab PO 4 mg BID SARA Administration Famotidine 20 mg 06/24/20 21:00 06/28/20 21:04 Famotidine 20 Mg Tab PO 20 mg QPM SARA Administration Folic Acid 1 mg 06/24/20 09:00 06/29/20 10:53 Folic Acid 1 Mg Tab PO 1 mg DAILY SARA Administration Sodium Chloride 1,000 mls @ 50 mls/hr 06/28/20 10:45 06/29/20 10:52 Normal Saline 0.9% IV 1,000 mls .Q20H SARA Administration Iron/Minerals/Multivitamins 1 tab 06/24/20 09:00 06/29/20 10:53 Multivitamin W/ Minerals 1 Tab PO 1 tab DAILY SARA Administration Magnesium Oxide 400 mg 06/24/20 09:00 06/29/20 10:53 Magnesium Oxide 400 Mg Tab PO 400 mg DAILY SARA Administration Sodium Chloride 10 ml 06/23/20 18:44 06/27/20 21:01 Flush - Normal Saline 10 Ml Syringe IVF 10 ml Q12HR PRN Administration Saline Flush Thiamine HCl 100 mg 06/24/20 09:00 06/29/20 10:53 Thiamine 100 Mg Tab PO 100 mg DAILY SARA Administration - Exam General Appearance: awake alert Eye: PERRL ENT: normocephalic atraumatic Neck: supple Respiratory: CTAB Cardiovascular: RRR Gastrointestinal: soft Extremities: no cyanosis Skin: normal turgor, no lesions Neurological: no new deficit Musculoskeletal: generalized weakness PSYCH: oriented to person, oriented to place Results - Labs Result Diagrams: 06/29/20 04:28 06/29/20 04:28 Lab results: WBC 8.3 thou/uL (4.8-10.8) 06/29/20 04:28 Hgb 11.3 g/dL (14.0-18.0) L 06/29/20 04:28 Hct 33.8 % (42.0-52.0) L 06/29/20 04:28 MCV 106.0 fL (78.0-98.0) H 06/29/20 04:28 Plt Count 314 thou/uL (130-400) 06/29/20 04:28 Neutrophils % 70.2 % (42.0-75.0) 06/29/20 04:28 Sodium 135 mmol/L (136-145) L 06/29/20 04:28 Potassium 4.0 mmol/L (3.5-5.1) 06/29/20 04:28 Chloride 104 mmol/L (98-107) 06/29/20 04:28 Carbon Dioxide 22 mmol/L (23-31) L 06/29/20 04:28 BUN 29 mg/dL (8.4-25.7) H 06/29/20 04:28 Creatinine 1.46 mg/dL (0.7-1.3) H 06/29/20 04:28 Glucose 108 mg/dL (80-115) 06/29/20 04:28 Lactic Acid 1.1 mmol/L (0.5-2.2) 06/23/20 16:47 Calcium 9.2 mg/dL (7.8-10.44) 06/29/20 04:28 Total Bilirubin 0.3 mg/dL (0.2-1.2) 06/26/20 04:47 AST 21 U/L (5-34) 06/26/20 04:47 ALT 10 U/L (8-55) 06/26/20 04:47 Alkaline Phosphatase 67 U/L (40-110) 06/26/20 04:47 Troponin I 0.010 ng/mL (< 0.028) 06/23/20 16:47 Serum Total Protein 7.0 g/dL (5.8-8.1) 06/26/20 04:47 Albumin 3.1 g/dL (3.4-4.8) L 06/26/20 04:47 Lipase 162 U/L (8-78) H 06/24/20 01:16 Urine Ketones Negative mg/dL (Negative) 06/23/20 17:36 Urine Blood Negative (Negative) 06/23/20 17:36 Urine Nitrite Negative (Negative) 06/23/20 17:36 Ur Leukocyte Esterase 500 Ming/uL (Negative) A 06/23/20 17:36 Urine RBC 4-6 HPF (0-3) A 10/20/20 17:36 Urine WBC Greater than 50 HPF (0-3) A 06/23/20 17:36 Ur Squamous Epith Cells 0-3 HPF (0-3) 06/23/20 17:36 Urine Bacteria Rare-Few HPF (None Seen) 06/23/20 17:36 PN A/P (1) Acute CVA (cerebrovascular accident) Code(s): I63.9 - CEREBRAL INFARCTION, UNSPECIFIED Status: Acute (2) Acute renal failure Status: Acute (3) Alcohol abuse Code(s): F10.10 - ALCOHOL ABUSE, UNCOMPLICATED Status: Chronic (4) COPD (chronic obstructive pulmonary disease) Status: Chronic (5) Generalized weakness Code(s): R53.1 - WEAKNESS Status: Chronic (6) Hypertension Code(s): I10 - ESSENTIAL (PRIMARY) HYPERTENSION Status: Chronic (7) Malnutrition Code(s): E46 - UNSPECIFIED PROTEIN-CALORIE MALNUTRITION Status: Chronic (8) Tobacco abuse Code(s): Z72.0 - TOBACCO USE Status: Chronic - Plan Daily Plan: plan discussed w/ family, PT/OT, speech therapy, DVT proph w/SCDs 65-year-old male with medical history significant for malnutrition, alcohol abuse, tobacco abuse presented with confusion and left-sided weakness. MRI of the brain consistent with acute infarction. Patient is alert and oriented x 2 but still somewhat confused at baseline. Case management is on board regarding discharge planning. Home versus rehab. Patient wants to go home. MRI of the brain reviewed which was consistent with acute infarct in the right thalamus EEG reviewed which was negative for seizure activity. Telemetry showed an episode of junctional arrhythmia. Cardiology is on board. 2D echo showed left ventricle ejection fraction 55 to 60%. No thrombus or PFO. CTA head and neck results reviewed which were abnormal. Appreciate vascular surgery recommendations. No surgical intervention needed at this time. Neurochecks every 4 hours. Permissive control of blood pressure at this time. Strict control of blood glucose. Continue home medications. Continue aspirin and high intensity statin for secondary stroke prevention. PT/OT/speech Patient counseled about alcohol and tobacco abuse.[facility] protocol Surgery consult completed and patient is not deemed to be a candidate for surgical intervention at this time for gangrenous toes DVT prophylaxis. Case management on board regarding discharge planning. Stroke work-up completed. Continue medical management per primary team Plan discussed in detail with the patient, sister and also during rounds
--- NOTE | 2020-06-29 18:52 | PRG ---
DATE OF SERVICE: 06/29/2020 OBJECTIVE: VITAL SIGNS: The patient noted with the following vital signs, afebrile, temperature 98.8, pulse 104, respiratory rate of 20, blood pressure 110/71. HEENT: Unremarkable. CARDIOVASCULAR SYSTEM: First and second heart sounds were heard. RESPIRATORY SYSTEM: Clear to auscultation. DIGESTIVE SYSTEM: Revealed a benign abdomen with positive bowel sounds. EXTREMITIES: No peripheral edema. SKIN: No new gross rash. LYMPHATICS: No peripheral lymphadenopathy. IMPRESSION: Acute on chronic kidney disease, much improved. PLAN: Continue current renal supportive measures. Job ID: [id number]
[2020-06-29] MEDS: Atorvastatin Calcium 40 MG TAB PO SCH (21:21)
[2020-06-29] MEDS: Famotidine 20 MG TAB PO SCH (21:21)
[2020-06-30] MEDS: Sodium Chloride 0.9% 1,000 ML IV SCH (06:26)
--- NOTE | 2020-06-30 07:21 | PDOC.HOSPP ---
- Subjective Encounter Date: 06/30/20 Encounter Time: 10:00 Subjective: Patient without complaints. Dizziness and weakness on sitting/standing has improved. Refusing placement, but not safe to go home by himself. His family is pushing him to agree to placement. - Objective Vital Signs & Weight: Vital Signs (12 hours) Temp Pulse Resp BP BP Pulse Ox 06/30/20 04:00 99.1 F 104 H 20 111/71 111/71 98 06/30/20 00:04 98.6 F 99 18 120/71 99 06/30/20 00:00 120/71 06/29/20 20:00 98.5 F 106 H 16 114/69 114/69 100 Weight Admit Weight 106 lb 4.8 oz Weight 106 lb 4.8 oz I&O: 06/29/20 06/30/20 07/01/20 06:59 06:59 06:59 Intake Total 2575.5 2130 Balance 2575.5 2130 Result Diagrams: 06/29/20 04:28 06/29/20 04:28 Hospitalist ROS - Review of Systems Constitutional: denies: fever, chills Respiratory: denies: cough, shortness of breath Cardiovascular: denies: chest pain, palpitations Gastrointestinal: denies: nausea, vomiting - Medication Medications: Active Medications Generic Name Dose Route Start Last Admin Trade Name Freq PRN Reason Stop Dose Admin Acetaminophen 650 mg 06/24/20 04:38 06/27/20 13:29 Acetaminophen 325 Mg Tab PO 650 mg Q4H PRN Administration Headache/Fever or Pain Amlodipine Besylate 10 mg 06/26/20 09:00 06/27/20 09:19 Amlodipine 10 Mg Tab PO 10 mg DAILY SARA Administration Aspirin 325 mg 06/24/20 09:00 06/29/20 10:52 Aspirin 325 Mg Enteric Coated Tablet PO 325 mg DAILY SARA Administration Atorvastatin Calcium 40 mg 06/23/20 21:00 06/29/20 21:21 Atorvastatin Calcium 40 Mg Tab PO 40 mg HS SARA Administration Cyproheptadine HCl 4 mg 06/25/20 21:00 06/29/20 21:21 Cyproheptadine 4 Mg Tab PO 4 mg BID SARA Administration Famotidine 20 mg 06/24/20 21:00 06/29/20 21:21 Famotidine 20 Mg Tab PO 20 mg QPM SARA Administration Folic Acid 1 mg 06/24/20 09:00 06/29/20 10:53 Folic Acid 1 Mg Tab PO 1 mg DAILY SARA Administration Sodium Chloride 1,000 mls @ 50 mls/hr 06/28/20 10:45 06/30/20 06:26 Normal Saline 0.9% IV 1,000 mls .Q20H SARA Administration Iron/Minerals/Multivitamins 1 tab 06/24/20 09:00 06/29/20 10:53 Multivitamin W/ Minerals 1 Tab PO 1 tab DAILY SARA Administration Magnesium Oxide 400 mg 06/24/20 09:00 06/29/20 10:53 Magnesium Oxide 400 Mg Tab PO 400 mg DAILY SARA Administration Sodium Chloride 10 ml 06/23/20 18:44 06/27/20 21:01 Flush - Normal Saline 10 Ml Syringe IVF 10 ml Q12HR PRN Administration Saline Flush Thiamine HCl 100 mg 06/24/20 09:00 06/29/20 10:53 Thiamine 100 Mg Tab PO 100 mg DAILY SARA Administration - Exam General Appearance: NAD, awake alert ENT: moist mucosa Heart: RRR, no murmur, no gallops, no rubs Respiratory: CTAB, no wheezes, no rales, no ronchi Gastrointestinal: soft, non-tender, non-distended, normal bowel sounds Extremities - other findings: very thin extremities Psychiatric: normal affect, normal behavior Hosp A/P (1) Acute CVA (cerebrovascular accident) Code(s): I63.9 - CEREBRAL INFARCTION, UNSPECIFIED Status: Acute (2) Acute renal failure Status: Acute (3) Hyperkalemia Code(s): E87.5 - HYPERKALEMIA Status: Resolved (4) Alcohol abuse Code(s): F10.10 - ALCOHOL ABUSE, UNCOMPLICATED Status: Chronic (5) COPD (chronic obstructive pulmonary disease) Status: Chronic (6) Generalized weakness Code(s): R53.1 - WEAKNESS Status: Chronic (7) Hypertension Code(s): I10 - ESSENTIAL (PRIMARY) HYPERTENSION Status: Chronic (8) Malnutrition Code(s): E46 - UNSPECIFIED PROTEIN-CALORIE MALNUTRITION Status: Chronic (9) Tobacco abuse Code(s): Z72.0 - TOBACCO USE Status: Chronic (10) Hyponatremia Code(s): E87.1 - HYPO-OSMOLALITY AND HYPONATREMIA Status: Acute (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 Dropped to 70systolic one night but asymptomatic, improved after fluids Holding Amlodipine. Gave more fluids Monday and started saline running at 50mL/hr. BP better past 2 days and no drop on orthostatics. Patient has been mildly tachycardic most of his admission. Cardiology following. Continue ASA/Lipitor ASE protocol MVI/Thiamine/Folate BP low on Amlodipine, being held, Not requiring Losartan/HCTZ. Consulted General surgery regarding gangrenous toes, Dr. Gibbs doesn't recommend surgery at this time, just wound care CM for dispo planning SNF/Rehab but patient is refusing. Will need to be moving better before can send home on home health. OOB with PT
[2020-06-30] MEDS: Magnesium Oxide 400 MG TAB PO SCH (09:48)
[2020-06-30] MEDS: Aspirin 325 mg Enteric Coated Tablet PO SCH (09:48)
[2020-06-30] MEDS: Thiamine 100 MG TAB PO SCH (09:48)
[2020-06-30] MEDS: Folic Acid 1 MG TAB PO SCH (09:48)
[2020-06-30] MEDS: Multivitamin W/ Minerals 1 TAB PO SCH (09:48)
[2020-06-30] MEDS: Cyproheptadine 4 MG TAB PO SCH ×2 (09:48→21:20)
--- NOTE | 2020-06-30 13:36 | PDOC.NEUPN ---
- Subjective Encounter Date: 06/30/20 Subjective: Patient is alert and oriented to person and place and denies any new complaints. - Objective Vital Signs & Weight: Vital Signs (12 hours) Temp Pulse Resp BP BP BP Pulse Ox 06/30/20 12:35 118/64 06/30/20 11:21 98.2 F 108 H 16 118/64 98 06/30/20 07:22 99.1 F 104 H 16 113/70 99 06/30/20 04:00 99.1 F 104 H 20 111/71 111/71 98 Weight Admit Weight 106 lb 4.8 oz Weight 106 lb 4.8 oz I&O: 06/29/20 06/30/20 07/01/20 06:59 06:59 06:59 Intake Total 2575.5 2130 Output Total 100 Balance 2575.5 2130 -100 Result Diagrams: 06/29/20 04:28 06/29/20 04:28 Radiology Reviewed by me: Yes EKG Reviewed by me: Yes ROS - Review of Systems ROS unobtainable: due to mental status - Medication Medications: Active Medications Generic Name Dose Route Start Last Admin Trade Name Freq PRN Reason Stop Dose Admin Acetaminophen 650 mg 06/24/20 04:38 06/27/20 13:29 Acetaminophen 325 Mg Tab PO 650 mg Q4H PRN Administration Headache/Fever or Pain Amlodipine Besylate 10 mg 06/26/20 09:00 06/27/20 09:19 Amlodipine 10 Mg Tab PO 10 mg DAILY SARA Administration Aspirin 325 mg 06/24/20 09:00 06/30/20 09:48 Aspirin 325 Mg Enteric Coated Tablet PO 325 mg DAILY SARA Administration Atorvastatin Calcium 40 mg 06/23/20 21:00 06/29/20 21:21 Atorvastatin Calcium 40 Mg Tab PO 40 mg HS SARA Administration Cyproheptadine HCl 4 mg 06/25/20 21:00 06/30/20 09:48 Cyproheptadine 4 Mg Tab PO 4 mg BID SARA Administration Famotidine 20 mg 06/24/20 21:00 06/29/20 21:21 Famotidine 20 Mg Tab PO 20 mg QPM SARA Administration Folic Acid 1 mg 06/24/20 09:00 06/30/20 09:48 Folic Acid 1 Mg Tab PO 1 mg DAILY SARA Administration Sodium Chloride 1,000 mls @ 50 mls/hr 06/28/20:45 06/30/20 06:26 Normal Saline 0.9% IV 1,000 mls .Q20H SARA Administration Iron/Minerals/Multivitamins 1 tab 06/24/20 09:00 06/30/20 09:48 Multivitamin W/ Minerals 1 Tab PO 1 tab DAILY SARA Administration Magnesium Oxide 400 mg 06/24/20 09:00 06/30/20 09:48 Magnesium Oxide 400 Mg Tab PO 400 mg DAILY SARA Administration Sodium Chloride 10 ml 06/23/20 18:44 06/27/20 21:01 Flush - Normal Saline 10 Ml Syringe IVF 10 ml Q12HR PRN Administration Saline Flush Thiamine HCl 100 mg 06/24/20 09:00 06/30/20 09:48 Thiamine 100 Mg Tab PO 100 mg DAILY SARA Administration - Exam General Appearance: awake alert Eye: PERRL ENT: normocephalic atraumatic Neck: supple Respiratory: CTAB Cardiovascular: RRR Gastrointestinal: soft Extremities: no cyanosis Skin: normal turgor Neurological: no new deficit Musculoskeletal: generalized weakness PSYCH: normal affect, oriented to person, oriented to place Results - Labs Result Diagrams: 06/29/20 04:28 06/29/20 04:28 Lab results: WBC 8.3 thou/uL (4.8-10.8) 06/29/20 04:28 Hgb 11.3 g/dL (14.0-18.0) L 06/29/20 04:28 Hct 33.8 % (42.0-52.0) L 06/29/20 04:28 MCV 106.0 fL (78.0-98.0) H 06/29/20 04:28 Plt Count 314 thou/uL (130-400) 06/29/20 04:28 Neutrophils % 70.2 % (42.0-75.0) 06/29/20 04:28 Sodium 135 mmol/L (136-145) L 06/29/20 04:28 Potassium 4.0 mmol/L (3.5-5.1) 06/29/20 04:28 Chloride 104 mmol/L (98-107) 06/29/20 04:28 Carbon Dioxide 22 mmol/L (23-31) L 06/29/20 04:28 BUN 29 mg/dL (8.4-25.7) H 06/29/20 04:28 Creatinine 1.46 mg/dL (0.7-1.3) H 06/29/20 04:28 Glucose 108 mg/dL (80-115) 06/29/20 04:28 Lactic Acid 1.1 mmol/L (0.5-2.2) 06/23/20 16:47 Calcium 9.2 mg/dL (7.8-10.44) 06/29/20 04:28 Total Bilirubin 0.3 mg/dL (0.2-1.2) 06/26/20 04:47 AST 21 U/L (5-34) 06/26/20 04:47 ALT 10 U/L (8-55) 06/26/20 04:47 Alkaline Phosphatase 67 U/L (40-110) 06/26/20 04:47 Troponin I 0.010 ng/mL (< 0.028) 06/23/20 16:47 Serum Total Protein 7.0 g/dL (5.8-8.1) 06/26/20 04:47 Albumin 3.1 g/dL (3.4-4.8) L 06/26/20 04:47 Lipase 162 U/L (8-78) H 06/24/20 01:16 Urine Ketones Negative mg/dL (Negative) 06/23/20 17:36 Urine Blood Negative (Negative) 06/23/20 17:36 Urine Nitrite Negative (Negative) 06/23/20 17:36 Ur Leukocyte Esterase 500 Ming/uL (Negative) A 06/23/20 17:36 Urine RBC 4-6 HPF (0-3) A 06/23/20 17:36 Urine WBC Greater than 50 HPF (0-3) A 06/23/20 17:36 Ur Squamous Epith Cells 0-3 HPF (0-3) 06/23/20 17:36 Urine Bacteria Rare-Few HPF (None Seen) 06/23/20 17:36 PN A/P (1) Acute CVA (cerebrovascular accident) Code(s): I63.9 - CEREBRAL INFARCTION, UNSPECIFIED Status: Acute (2) Acute renal failure Status: Acute (3) Alcohol abuse Code(s): F10.10 - ALCOHOL ABUSE, UNCOMPLICATED Status: Chronic (4) COPD (chronic obstructive pulmonary disease) Status: Chronic (5) Generalized weakness Code(s): R53.1 - WEAKNESS Status: Chronic (6) Hypertension Code(s): I10 - ESSENTIAL (PRIMARY) HYPERTENSION Status: Chronic (7) Malnutrition Code(s): E46 - UNSPECIFIED PROTEIN-CALORIE MALNUTRITION Status: Chronic (8) Tobacco abuse Code(s): Z72.0 - TOBACCO USE Status: Chronic - Plan Daily Plan: PT/OT, speech therapy, DVT proph w/SCDs 65-year-old male with medical history significant for malnutrition, alcohol abuse, tobacco abuse presented with confusion and left-sided weakness. MRI of the brain consistent with acute infarction. Patient is alert and oriented x 2 but still confused at baseline unable to follow commands appropriately Case management is on board regarding discharge planning. Home versus rehab. Patient wants to go home. MRI of the brain reviewed which was consistent with acute infarct in the right thalamus EEG reviewed which was negative for seizure activity. Telemetry showed an episode of junctional arrhythmia. Cardiology is on board. 2D echo showed left ventricle ejection fraction 55 to 60%. No thrombus or PFO. CTA head and neck results reviewed which were abnormal. Appreciate vascular surgery recommendations. No surgical intervention needed at this time. Neurochecks every 4 hours. Permissive control of blood pressure at this time. Strict control of blood glucose. Continue home medications. Continue aspirin and high intensity statin for secondary stroke prevention. PT/OT/speech Patient counseled about alcohol and tobacco abuse. [facility] protocol Surgery consult completed and patient is not deemed to be a candidate for surgical intervention at this time for gangrenous toes DVT prophylaxis. Case management on board regarding discharge planning. Continue medical management per primary team Plan discussed in detail during MDR rounds
[2020-06-30] MEDS: Atorvastatin Calcium 40 MG TAB PO SCH (21:20)
[2020-06-30] MEDS: Famotidine 20 MG TAB PO SCH (21:20)
[2020-07-01] MEDS: Sodium Chloride 0.9% 1,000 ML IV SCH (02:00)
[2020-07-01] MEDS: Multivitamin W/ Minerals 1 TAB PO SCH (10:10)
[2020-07-01] MEDS: Aspirin 325 mg Enteric Coated Tablet PO SCH (10:10)
[2020-07-01] MEDS: Thiamine 100 MG TAB PO SCH (10:10)
[2020-07-01] MEDS: Magnesium Oxide 400 MG TAB PO SCH (10:10)
[2020-07-01] MEDS: Folic Acid 1 MG TAB PO SCH (10:10)
[2020-07-01] MEDS: Cyproheptadine 4 MG TAB PO SCH ×2 (10:10→20:56)
--- NOTE | 2020-07-01 13:03 | PDOC.NEUPN ---
- Subjective Encounter Date: 07/01/20 Subjective: Mr. Spears denies any new complaints in the last 24 hours - Objective Vital Signs & Weight: Vital Signs (12 hours) Temp Pulse Resp BP BP BP Pulse Ox 07/01/20 12:24 98.9 F 107 H 18 113/70 98 07/01/20 07:31 99 F 112 H 16 132/90 99 07/01/20 04:00 98.3 F 101 H 18 103/67 103/67 100 Weight Admit Weight 106 lb 4.8 oz Weight 106 lb 4.8 oz I&O: 06/30/20 07/01/20 07/02/20 06:59 06:59 06:59 Intake Total 2130 999 Output Total 200 Balance 2130 799 Result Diagrams: 06/29/20 04:28 06/29/20 04:28 Radiology Reviewed by me: Yes EKG Reviewed by me: Yes ROS - Review of Systems Constitutional: denies: fever, chills, sweats, weakness, malaise, other Eyes: denies: pain, vision change, conjunctivae inflammation, eyelid inflammation, redness, other ENT: denies: ear pain, ear discharge, nose pain, nose discharge, nose congestion, mouth pain, mouth swelling, throat pain, throat swelling, other Respiratory: denies: cough, dry, shortness of breath, hemoptysis, SOB with excertion, pleuritic pain, sputum, wheezing, other Skin: denies: rash, lesions, mona, bruising, other Neurological: reports: weakness, numbness All Systems: All other systems reviewed; all pertinent +/- noted in HPI/Subj - Medication Medications: Active Medications Generic Name Dose Route Start Last Admin Trade Name Freq PRN Reason Stop Dose Admin Acetaminophen 650 mg 06/24/20 04:38 06/27/20 13:29 Acetaminophen 325 Mg Tab PO 650 mg Q4H PRN Administration Headache/Fever or Pain Amlodipine Besylate 10 mg 06/26/20 09:00 06/27/20 09:19 Amlodipine 10 Mg Tab PO 10 mg DAILY SARA Administration Aspirin 325 mg 06/24/20 09:00 07/01/20 10:10 Aspirin 325 Mg Enteric Coated Tablet PO 325 mg DAILY SARA Administration Atorvastatin Calcium 40 mg 06/23/20 21:00 06/30/20 21:20 Atorvastatin Calcium 40 Mg Tab PO 40 mg HS SARA Administration Cyproheptadine HCl 4 mg 06/25/20 21:00 07/01/20 10:10 Cyproheptadine 4 Mg Tab PO 4 mg BID SARA Administration Famotidine 20 mg 06/24/20 21:00 06/30/20 21:20 Famotidine 20 Mg Tab PO 20 mg QPM SARA Administration Folic Acid 1 mg 06/24/20 09:00 07/01/20 10:10 Folic Acid 1 Mg Tab PO 1 mg DAILY SARA Administration Sodium Chloride 1,000 mls @ 50 mls/hr 06/28/20 10:45 07/01/20 02:00 Normal Saline 0.9% IV 1,000 mls .Q20H SARA Administration Iron/Minerals/Multivitamins 1 tab 06/24/20 09:00 07/01/20 10:10 Multivitamin W/ Minerals 1 Tab PO 1 tab DAILY SARA Administration Magnesium Oxide 400 mg 06/24/20 09:00 07/01/20 10:10 Magnesium Oxide 400 Mg Tab PO 400 mg DAILY SARA Administration Sodium Chloride 10 ml 06/23/20 18:44 06/27/20 21:01 Flush - Normal Saline 10 Ml Syringe IVF 10 ml Q12HR PRN Administration Saline Flush Thiamine HCl 100 mg 06/24/20 09:00 07/01/20 10:10 Thiamine 100 Mg Tab PO 100 mg DAILY SARA Administration - Exam General Appearance: awake alert Eye: PERRL ENT: normocephalic atraumatic Neck: supple Respiratory: CTAB Cardiovascular: RRR Gastrointestinal: soft Extremities: no cyanosis Skin: normal turgor Neurological: no new deficit Musculoskeletal: generalized weakness PSYCH: normal affect, normal behavior, oriented to person, oriented to place Results - Labs Result Diagrams: 06/29/20 04:28 06/29/20 04:28 Lab results: WBC 8.3 thou/uL (4.8-10.8) 06/29/20 04:28 Hgb 11.3 g/dL (14.0-18.0) L 06/29/20 04:28 Hct 33.8 % (42.0-52.0) L 06/29/20 04:28 MCV 106.0 fL (78.0-98.0) H 06/29/20 04:28 Plt Count 314 thou/uL (130-400) 06/29/20 04:28 Neutrophils % 70.2 % (42.0-75.0) 06/29/20 04:28 Sodium 135 mmol/L (136-145) L 06/29/20 04:28 Potassium 4.0 mmol/L (3.5-5.1) 06/29/20 04:28 Chloride 104 mmol/L (98-107) 06/29/20 04:28 Carbon Dioxide 22 mmol/L (23-31) L 06/29/20 04:28 BUN 29 mg/dL (8.4-25.7) H 06/29/20 04:28 Creatinine 1.46 mg/dL (0.7-1.3) H 06/29/20 04:28 Glucose 108 mg/dL (80-115) 06/29/20 04:28 Lactic Acid 1.1 mmol/L (0.5-2.2) 06/23/20 16:47 Calcium 9.2 mg/dL (7.8-10.44) 06/29/20 04:28 Total Bilirubin 0.3 mg/dL (0.2-1.2) 06/26/20 04:47 AST 21 U/L (5-34) 06/26/20 04:47 ALT 10 U/L (8-55) 06/26/20 04:47 Alkaline Phosphatase 67 U/L (40-110) 06/26/20 04:47 Troponin I 0.010 ng/mL (< 0.028) 06/23/20 16:47 Serum Total Protein 7.0 g/dL (5.8-8.1) 06/26/20 04:47 Albumin 3.1 g/dL (3.4-4.8) L 06/26/20 04:47 Lipase 162 U/L (8-78) H 06/24/20 01:16 Urine Ketones Negative mg/dL (Negative) 06/23/20 17:36 Urine Blood Negative (Negative) 06/23/20 17:36 Urine Nitrite Negative (Negative) 06/23/20 17:36 Ur Leukocyte Esterase 500 Ming/uL (Negative) A 06/23/20 17:36 Urine RBC 4-6 HPF (0-3) A 06/23/20 17:36 Urine WBC Greater than 50 HPF (0-3) A 06/23/20 17:36 Ur Squamous Epith Cells 0-3 HPF (0-3) 06/23/20 17:36 Urine Bacteria Rare-Few HPF (None Seen) 06/23/20 17:36 - EKG Interpretation EKG: Normal sinus rhythm - Radiology Interpretation MRI - head Status: image reviewed by me, report reviewed by me Additional Comment: MRI brain consistent with acute infarction in the left thalamus PN A/P (1) Acute CVA (cerebrovascular accident) Code(s): I63.9 - CEREBRAL INFARCTION, UNSPECIFIED Status: Acute (2) Acute renal failure Status: Acute (3) Alcohol abuse Code(s): F10.10 - ALCOHOL ABUSE, UNCOMPLICATED Status: Chronic (4) COPD (chronic obstructive pulmonary disease) Status: Chronic (5) Generalized weakness Code(s): R53.1 - WEAKNESS Status: Chronic (6) Hypertension Code(s): I10 - ESSENTIAL (PRIMARY) HYPERTENSION Status: Chronic (7) Malnutrition Code(s): E46 - UNSPECIFIED PROTEIN-CALORIE MALNUTRITION Status: Chronic (8) Tobacco abuse Code(s): Z72.0 - TOBACCO USE Status: Chronic - Plan Daily Plan: PT/OT, speech therapy, DVT proph w/SCDs 65-year-old male with medical history significant for malnutrition, alcohol abuse, tobacco abuse presented with confusion and left-sided weakness. MRI of the brain consistent with acute infarction. Patient is alert and oriented x 2 and participated with physical therapy the second time during his stay which is an improvement. Case management is on board regarding discharge planning. Home versus rehab. MRI of the brain reviewed which was consistent with acute infarct in the right thalamus EEG reviewed which was negative for seizure activity. Telemetry showed an episode of junctional arrhythmia. Cardiology is on board. 2D echo showed left ventricle ejection fraction 55 to 60%. No thrombus or PFO. CTA head and neck results reviewed which were abnormal. Appreciate vascular surgery recommendations. No surgical intervention needed at this time. Neurochecks every 4 hours. Strict control of blood pressure and blood glucose. Continue home medications. Continue aspirin and high intensity statin for secondary stroke prevention. PT/OT/speech Patient counseled about alcohol and tobacco abuse. [facility] protocol Surgery consult completed and patient is not deemed to be a candidate for surgical intervention at this time for gangrenous toes DVT prophylaxis. Continue medical management per primary team Plan discussed in detail during MDR rounds
[2020-07-01 15:34] VITALS: BP 131/78; TEMP 98.8
--- NOTE | 2020-07-01 19:16 | DIS ---
DATE OF ADMISSION: 06/24/2020 DATE OF DISCHARGE: 07/01/2020 DISCHARGE DIAGNOSES: 1. Acute right thalamus ischemic cerebrovascular accident with left hemiparesis. 2. Hyperkalemia, resolved. 3. Acute renal failure, resolved. 4. Hyponatremia, chronic. 5. Alcohol abuse, chronic. 6. Dry gangrene of bilateral feet. No surgical intervention recommended. 7. Moderate protein-calorie malnutrition. 8. Tobacco abuse. 9. Hypertension. CONSULTATIONS: 1. Dr. Lam with Neurology Service. 2. Dr. Krause with Nephrology Service. 3. Dr. Gibbs with General Surgery Service. 4. Dr. Dixon Watkins with Cardiology Service. 5. Dr. Dominic Cobian with Vascular Surgery Service. PERTINENT LABORATORY AND X-RAY FINDINGS: Sodium ranged between 128 to 135. Creatinine ranged between 1.38 to 2.85. Estimated GFR ranged between 27 to 63. Lactic acid level 1.1, magnesium level 1.7. Total cholesterol 142, triglyceride 69, HDL 52, LDL 76, lipase 162. CBC showed a hemoglobin ranging between 11.3 to 13.3. Urine drug screen dated 06/23/2020, negative. COVID-19 PCR not detected on 06/26/2020. Urine culture dated 06/23/2020, showed no growth at [address] of the [place] dated 06/23/2020, showed moderate to severe diffuse narrowing of the cavernous and supraclinoid internal carotid arteries bilaterally. Severe narrowing involving the proximal right intradural vertebral artery. Complete occlusion of the origin and proximal aspect of the left cervical vertebral artery. No acute intracranial process noted. Portable chest x-ray dated 06/23/2020, showed changes consistent with chronic obstructive pulmonary disease. Cervical spine radiographs dated 06/24/2020, showed multilevel degenerative changes of cervical spine. Thoracic spine radiographs dated 06/24/2020, showed oval shaped density overlying the left hilar region in the left paramediastinal location. Degenerative changes of the thoracic spine. MRI of the brain dated 06/24/2020, showed acute right thalamic infarct. 2D transthoracic echocardiogram dated 06/24/2020, showed ejection fraction 55% to 60%. Mild mitral and tricuspid valve regurgitation. HOSPITAL COURSE: The patient was initially admitted to the Stroke Unit after presenting with generalized weakness and left-sided deficit with apparent fall prior to admission. The patient underwent CT angiogram of the head and neck, showing severe diffuse vascular disease with MRI imaging of the brain confirming a right thalamic infarct. The patient underwent evaluation by multiple consultants including Vascular Surgery Service without specific recommendations for surgical intervention for the carotid artery disease. Neurology consultation was also obtained, who recommended general stroke protocol including aspirin and statin agents. The patient was also titrated on his antihypertensive regimen and may need additional titration on an ongoing basis after discharge. The patient was also treated with IV fluids for acute kidney injury, improving by the time of discharge. The patient continued with general stroke protocol throughout the hospital course with recommendations to pursue ongoing inpatient rehabilitation due to current living situation as well as ongoing deficit from the CVA and concern for safety after returning home. The patient did not want to pursue inpatient rehabilitation, however, family convinced the patient for this course of action and we will transition to [facility] on 07/01/2020. I have examined the patient at the time of discharge and discussed followup instructions. The patient verbalized understanding and agreement, ready for discharge on 07/01/2020. DISCHARGE MEDICATIONS: 1. Aspirin 325 mg p.o. daily. 2. Norvasc 10 mg p.o. daily. 3. Folic acid 1 mg p.o. daily. 4. Lipitor 40 mg p.o. at bedtime. 5. Magnesium oxide 400 mg p.o. daily. 6. Metoprolol tartrate 12.5 mg p.o. b.i.d. 7. Pepcid 20 mg p.o. at bedtime. 8. Thiamine 100 mg p.o. daily. 9. Cyproheptadine 4 mg p.o. b.i.d. FOLLOWUP: The patient may follow up with his primary care provider after discharge from inpatient rehabilitation, Margie García. CONDITION ON DISCHARGE: Fair. ACTIVITY: Ad annalisa, rolling walker with standby assistance. Fall risk precautions. DIET: Heart healthy. CODE STATUS: Full. SPECIAL INSTRUCTIONS: The patient receives ongoing wound care for bilateral feet and dry gangrene with wet-to-dry dressings. No surgical intervention recommended at this time. DISPOSITION: Discharged to [facility] on 07/01/2020. Total time preparing and coordinating discharge, 35 minutes. Job ID: [id number]
[2020-07-01] MEDS: Atorvastatin Calcium 40 MG TAB PO SCH (20:56)
[2020-07-01] MEDS: Famotidine 20 MG TAB PO SCH (20:56)
== END 2020-07-01 23:21 | DRG 65 ==
LOC: ERS 16:19 → 2SE 17:45 → OBSVTOIN 06-24 11:13
PROVIDERS: ADMIT Internal Medicine; ATTEND Emergency Medicine
PROC: HZ2ZZZZ Detoxification Services for Substance Abuse Treatment (ICD-10-PCS; principal; 2020-06-24)
DX: I63.89 Other cerebral infarction (principal); E44.0 Moderate protein-calorie malnutrition; Z68.1 Body mass index [BMI] 19.9 or less, adult; N17.9 Acute kidney failure, unspecified; E87.1 Hypo-osmolality and hyponatremia; E87.2 Acidosis; G81.94 Hemiplegia, unspecified affecting left nondominant side; I70.269 Atherosclerosis of native arteries of extremities with gangrene, unspecified extremity; Z20.828 Contact with and (suspected) exposure to other viral communicable diseases; F10.10 Alcohol abuse, uncomplicated; J43.9 Emphysema, unspecified; I10 Essential (primary) hypertension; F17.210 Nicotine dependence, cigarettes, uncomplicated; E87.5 Hyperkalemia; G93.89 Other specified disorders of brain; R40.2412 Glasgow coma scale score 13-15, at arrival to emergency department; R29.704 NIHSS score 4; Z90.49 Acquired absence of other specified parts of digestive tract; Z79.899 Other long term (current) drug therapy
CPT/HCPCS: 36415; 36416; 70496; 70498; 70551; 71045; 72040; 72072; 80048; 80053; 80061; 80306; 81003; 81015; 83605; 83690; 83735; 83935; 84300; 84484; 85025; 87086; 87635; 93005; 93306; 95712; 95819; 95957; 96365; 96375; G0378; J3411; J3475; J3490; J7042; J7070; Q9967; S0028; U0003

== ENCOUNTER 2020-08-07 09:12 | Outpatient (CLI) | payer MEDICARE, MEDICAID ==
--- NOTE | 2020-08-07 11:33 | CT ---
CTA ABDOMEN AND PELVIS WITH BILATERAL LOWER EXTREMITY RUNOFF: INDICATIONS: 65-year-old male with history of bilateral feet ulceration TECHNIQUE: Multiple CTA images were obtained of the abdomen and pelvis with bilateral lower extremity runoff uti lizing IV contrast and 3D reformatted imaging. Axial, coronal and sagittal reformatted images were constructed from the raw data. COMPARISON: None. FINDINGS: ABDOMEN: Lung bases: There is emphysematous change involving both lung bases. There are areas of subsegmental volume loss involving both lower lobes. There are coronary artery and thoracic aortic calcifications. Liver: No focal lesion. Gallbladder: Normal appearing. Pancreas: Normal. Adrenal glands: Normal. Spleen: Normal. Kidneys and ureters: There are bilateral renal hypodensities somewhat difficult to characterize on th is single phase exam. Many may reflect slightly proteinaceous cysts. Some are too small to fully characterize. There is a septated hypodense lesion involving the superior pole right kidney measuring 2 cm that may reflect a complex cystic mass. Lymph nodes:No lymphadenopathy. Free fluid in abdomen:No free fluid is evident. PELVIS: Small and large bowel: There is a prominent amount retained stool within the rectum. There is a mild amount retained stool within the colon. The small bowel is of normal caliber. Appendix:Not definitely seen Bladder: Normal. Rectal and perirectal soft tissues:Prominent amount retained stool within the rectum. Reproductive structures: Normal. Free fluid in pelvis: No free fluid is evident. Lymphadenopathy pelvis: No lymphadenopathy is evident. Osseous structures: There is diffuse osteopenia. There is scattered degenerative and osteoarthritic c hange present. No acute fracture or subluxation demonstrated. There is gas involving the distal phalanx of the left second digit suspicious for osteomyelitis open wound in this location. There is scattered degenerative and osteoarthritic changes. Soft tissues:Normal. VASCULATURE: Aorta: There is severe atherosclerotic irregularity involving the abdominal aorta. The suprarenal abd ominal aorta measured 2.3 cm. The aorta at the level of the renal arteries measures 2 cm. The infrarenal abdominal aorta measures 3 cm and has a large focus of eccentric mural thrombus. Celiac:Normal in caliber without evidence of stenosis or occlusion. SMA:There is severe narrowing involving the origin and proximal aspect of the SMA. Renal arteries:There is severe atherosclerotic calcification involving the main renal arteries bilate rally with mild narrowing involving the origin of the left main renal artery. ISAEL:There is moderate to severe narrowing involving the origin of the ISAEL. Right common iliac artery: Mildly ectatic measuring 1.5 cm. Right external iliac artery: Normal in caliber without evidence of stenosis or occlusion. Right internal iliac artery: There is severe narrowing involving the origin of the right internal pj ac artery. There is mild aneurysmal dilatation of the right internal iliac artery image 100 of series 3.1 cm. There are multifocal areas of stenosis involving the right internal iliac artery. Left common iliac artery: Mildly ectatic measuring 1.4 cm Left external iliac artery: There is mild narrowing due to eccentric plaque.. Left internal iliac artery: There is high-grade stenosis involving origin and proximal aspect of the left internal iliac artery. Right common femoral artery: Normal in caliber without evidence of stenosis or occlusion. Right deep femoral artery: There is moderate narrowing involving the proximal right profunda femoral artery. Right superficial femoral artery: There is moderate narrowing involving the origin of the right supe rficial femoral artery. There is high-grade stenosis involving the proximal right superficial femoral artery. There is moderate narrowing involving the distal right SFA. There is a focus of high- grade stenosis near the adductor hiatus. Right popliteal artery: Multifocal high-grade stenoses multifocal occlusions involving the right pop liteal artery. Right posterior tibial artery: Multifocal high-grade stenosis with multilevel occlusion Right anterior tibial artery: Multifocal high-grade stenosis with single vessel runoff to the ankle. Right peroneal artery: Multifocal high-grade stenosis with multifocal occlusions of the right perone al artery. Left common femoral artery: There is moderate grade stenosis involving the proximal left common femo ral artery with near complete occlusion of the distal left common femoral artery. There is some reconstitution of flow via the proximal left profunda femoral artery through collaterals. Left deep femoral artery: There is some reconstitution of flow within the proximal left profunda fem oral artery. Left superficial femoral artery: Completely occluded Left popliteal artery: Multifocal high-grade stenosis with multiple occlusions. There is minimal rec onstitution of flow within the tibial peroneal trunk Left posterior tibial artery: Multifocal high-grade stenosis and occlusion within the mid left forel eg Left anterior tibial artery: Multifocal high-grade stenosis with multi focal occlusions. There is ve ry minimal opacification of the left anterior tibial artery at the level the ankle. Left peroneal artery: Multifocal high-grade stenosis with complete occlusion at the level of the dis amanda left foreleg. Additional findings: None. IMPRESSION: 1. Severe diffuse atherosclerotic disease in involving the abdominal pelvic vasculature as well as zack th lower extremity vasculature. 2. 3 cm infrarenal abdominal aortic aneurysm with eccentric mural thrombus. 3. Severe narrowing of the origin and proximal aspect of the SMA. 4. Complete occlusion of the distal left common femoral artery and left superficial femoral artery. T here is some reconstitution of flow within the left popliteal artery and left tibial peroneal trunk; however, there are multifocal high-grade stenosis involving the left popliteal and left tibial peroneal trunk. Multifocal high-grade stenosis involving the foreleg vasculature with minimal contrast opacification seen within the distal left anterior tibial artery at the level the ankle. The re is complete occlusion of the posterior tibial and peroneal arteries of the left lower extremity. 5. Multifocal moderate to high-grade stenosis involving the distal right superficial femoral artery w ith a focus of high-grade stenosis of the distal right superficial femoral artery at the level of the adductor hiatus. There is multifocal high-grade stenoses and occlusions involving the right popli teal artery and right foreleg vasculature. There is minimal opacification of the lumen of the distal right anterior tibial artery at the level the ankle. 6. There is gas seen within the soft tissues and bones of the distal left foot second digit (distal p halanx and middle phalanx) suspicious for changes of gas gangrene and osteomyelitis. 7. Partially characterized septated cystic lesion involving the superior pole right kidney. Follow-up CT the abdomen utilizing renal mass protocol and IV contrast is recommended for additional characterization. There are additional mildly hyperdense lesions involving the left kidney that requi res further evaluation. This can be further assessed on the recommended exam as above. 8. Findings called to Dr. Latham's answering service at 11:29 AM on 08/07/2020.
[2020-08-07] MEDS ORDERED: Iopamidol 370 76% 100 ML VIAL ONE (14:04)
== END 2020-08-07 09:13 | disposition home or self-care (01) ==
LOC: CT 09:12
PROVIDERS: ATTEND Internal Medicine Cardiovascular Disease
DX: L97.529 Non-pressure chronic ulcer of other part of left foot with unspecified severity (principal); I71.4 Abdominal aortic aneurysm, without rupture; I74.09 Other arterial embolism and thrombosis of abdominal aorta; I70.203 Unspecified atherosclerosis of native arteries of extremities, bilateral legs; K55.059 Acute (reversible) ischemia of intestine, part and extent unspecified; N28.1 Cyst of kidney, acquired; M79.89 Other specified soft tissue disorders; R93.7 Abnormal findings on diagnostic imaging of other parts of musculoskeletal system
CPT/HCPCS: 75635; 82565; Q9967

== ENCOUNTER 2020-08-18 13:29 | Outpatient (CLI) | payer MEDICARE, MEDICAID ==
--- NOTE | 2020-08-18 14:14 | RAD ---
XR Chest Pa Lat STANDARD History: Preop for foot surgery Comparison: None. Findings: Background lung hyperinflation. Aortic contour is intact. No pneumothorax. No significant e ffusion. No airspace consolidation. Impression: Background lung hyperinflation with aortic ectasia.
== END 2020-08-18 13:30 | disposition home or self-care (01) ==
LOC: LABBT 13:29
PROVIDERS: ATTEND Thoracic Surgery (Cardiothoracic Vascular Surgery)
DX: Z01.818 Encounter for other preprocedural examination (principal); Z20.828 Contact with and (suspected) exposure to other viral communicable diseases; I73.9 Peripheral vascular disease, unspecified; R91.8 Other nonspecific abnormal finding of lung field; I77.819 Aortic ectasia, unspecified site
CPT/HCPCS: 71046; 80048; 85027; 86850; 86900; 86901; 93005; U0003; 87635; 93010

== ENCOUNTER 2020-08-21 09:28 | Inpatient (IN) | payer MEDICARE, MEDICAID ==
[2020-08-18 14:25] LABS: Hemoglobin 12.3 g/dL (14.0-18.0); Mean Corpuscular HGB CONC 32.9 G/DL (32.0-36.0); Mean Corpuscular Hemoglobin 33.5 PG (27.0-33.0); Mean Corpuscular Volume 101.9 fl (80.0-100.0); Mean Platelet Volume 10.2 fl (7.4-10.4); Platelet Count 246 10x3/uL (130-400); RBC Distribution Width 14.2 % (11.5-14.5); Red Blood Cell (RBC) Count 3.67 10x6/uL (4.40-5.80); White Blood Cell (WBC) Count 6.5 10x3/uL (4.5-11.0)
[2020-08-18 14:39] LABS: Anion Gap 18 mmol/L (10-20); BUN (Urea Nitrogen) 34 mg/dL (8.4-25.7); Calc. Creatinine Clearance 0 mL/min (70-130); Calcium 9.5 mg/dL (7.8-10.44); Carbon Dioxide 21 mmol/L (23-31); Chloride 101 mmol/L (98-107); Glucose 77 mg/dL (80-115); Potassium 4.8 mmol/L (3.5-5.1); Sodium 135 mmol/L (136-145)
[2020-08-19 07:48] LABS: SARS-CoV-2 MS2 Positive; SARS-CoV-2 N Gene Negative; SARS-CoV-2 S Gene Negative; SARS-CoV-2 by NAA Not Detected (NotDetected); SARS-CoV-2 orf1ab Negative
[2020-08-20 14:20] VITALS: BMI 15.2
[2020-08-21] MEDS ORDERED: Rocuronium Bromide 10 MG/ML (10ML VIAL) ONE (10:23)
[2020-08-21] MEDS ORDERED: PROPOFOL 200 MG/20 ML VIAL ONE (10:23)
[2020-08-21] MEDS ORDERED: Lidocaine 1% PF 5 ML VIAL ONE (10:23)
[2020-08-21] MEDS ORDERED: Ondansetron PF 4 MG/2 ML Vial ONE (10:23)
[2020-08-21] MEDS ORDERED: Glycopyrrolate 0.2 MG/ML 5 ML SYRINGE ONE (10:23)
[2020-08-21] MEDS ORDERED: Fentanyl 250 MCG/5 ML VIAL ONE (11:04)
[2020-08-21] MEDS ORDERED: Heparin 5,000 UNITS/ML VIAL ONE (12:07)
[2020-08-21] MEDS ORDERED: Phenylephrine 10 MG/ML VIAL ONE (13:38)
[2020-08-21] MEDS ORDERED: Bupivacaine PF 0.5% 30 ML VIAL ONE (14:00)
[2020-08-21] MEDS ORDERED: Protamine Sulfate 50 MG/5 ML VIAL ONE (14:09)
[2020-08-21] MEDS ORDERED: Promethazine HCl 25 MG/ML VIAL IM PRN (14:43)
[2020-08-21] MEDS ORDERED: Promethazine HCl 25 MG/ML VIAL SLOW IVP PRN (14:43)
[2020-08-21] MEDS ORDERED: Ondansetron HCl/PF 4 MG/2 ML Vial IVP PRN (14:43)
[2020-08-21] MEDS ORDERED: hydrALAZINE 20 MG/ML VIAL ONE (15:09)
--- NOTE | 2020-08-21 15:32 | OP ---
DATE OF PROCEDURE: 08/21/2020 PREOPERATIVE DIAGNOSIS: Bilateral peripheral arterial disease with rest pain. POSTOPERATIVE DIAGNOSIS: Bilateral peripheral arterial disease with rest pain. PROCEDURES PERFORMED: Left external iliac/common femoral/profunda femoris endarterectomy with patch angioplasty. ANESTHESIA: General endotracheal, Dr. Royal Cobos. ESTIMATED BLOOD LOSS: Less than 100. DRAINS: None. SPECIMENS: None. DESCRIPTION OF PROCEDURE: After consent was obtained, the patient was brought to the operating room, placed in supine position on the operating table. Appropriate central line and monitors were placed and general endotracheal anesthesia was induced. Left groin was prepped and draped in usual sterile fashion. Skin incision was made over the common femoral artery. This incision was extended up to the inguinal ligament. The inguinal ligament was retracted and the external iliac artery exposed where it became softer underneath the inguinal ligament. Femoral bifurcation was exposed down to the profunda femoris, where there were profunda branched and became softer. The patient was systemically heparinized. After 3 minutes, the external iliac and profunda femoris arteries were clamped. An incision was made on the common femoral artery and extended proximally to where there was a lumen present on the external iliac artery. The incision was extended distally down to where there was a lumen present in the profunda femoris artery. Endarterectomy was performed. A significant amount of debris and calcification was debrided from the external iliac, common femoral, and down onto the profunda for approximately 2 cm. The medial fibers were debrided. I tacked down a piece of plaque distally with interrupted 6-0 Prolene sutures on the profunda. Bovine pericardium was then brought into the operative field. Antegrade and retrograde flow were checked and were good. Pericardium was sewn in place with running 5-0 Prolene suture. Prior to completion of the patch suture line, the arteries were antegrade and retrograde bled. The superficial femoral artery was completely occluded and never clamped during the procedure. Patch suture line was then tied. Antegrade flow was re-established. Multiple sutures were placed for hemostasis. Once adequate hemostasis had been obtained, 25 mg of protamine was administered and hemostasis ensured. Wounds were irrigated, closed in layers and Dermabond applied to the skin. There was a good Doppler signal in the profunda artery prior to closure distal to our patch. The patient was awakened, extubated, and transferred to the recovery room. Job ID: [id number]
[2020-08-21] MEDS ORDERED: traMADol HCl 50 MG TAB PO PRN (16:30)
[2020-08-21] MEDS ORDERED: Fentanyl 100 MCG/2 ML VIAL SLOW IVP PRN (16:30)
[2020-08-21] MEDS ORDERED: Acetaminophen 325 MG TAB PO PRN (16:30)
[2020-08-21] MEDS ORDERED: hydrALAZINE 20 MG/ML VIAL SLOW IVP PRN (16:30)
[2020-08-21] MEDS ORDERED: Ondansetron PF 4 MG/2 ML Vial IVP PRN (16:30)
[2020-08-21] MEDS: Cyproheptadine 4 MG TAB PO SCH (20:12)
[2020-08-21] MEDS: Metoprolol Tartrate 25 MG TAB PO SCH (20:14)
[2020-08-21] MEDS: traMADol HCl 50 MG TAB PO PRN (20:19)
[2020-08-21] MEDS: CEFAZOLIN 2 GM in Premix Bag 1 BAG IVPB SCH (20:35)
[2020-08-21] MEDS ORDERED: Atorvastatin Calcium 40 MG TAB PO SCH (21:00)
[2020-08-21] MEDS ORDERED: Famotidine 20 MG TAB PO SCH (21:00)
[2020-08-22] MEDS: CEFAZOLIN 2 GM in Premix Bag 1 BAG IVPB SCH (05:04)
[2020-08-22] MEDS: traMADol HCl 50 MG TAB PO PRN (05:09)
[2020-08-22 07:43] VITALS: BP 126/77; TEMP 98.6
[2020-08-22] MEDS: Metoprolol Tartrate 25 MG TAB PO SCH (08:14)
[2020-08-22] MEDS: Cyproheptadine 4 MG TAB PO SCH (08:33)
[2020-08-22] MEDS ORDERED: Thiamine 100 MG TAB PO SCH (09:00)
[2020-08-22] MEDS ORDERED: Magnesium Oxide 400 MG TAB PO SCH (09:00)
[2020-08-22] MEDS ORDERED: Folic Acid 1 MG TAB PO SCH (09:00)
[2020-08-22] MEDS ORDERED: Amlodipine 10 MG TAB PO SCH (09:00)
[2020-08-22] MEDS ORDERED: Aspirin 325 mg Enteric Coated Tablet PO SCH (09:00)
--- NOTE | 2020-08-23 18:04 | DIS ---
DATE OF ADMISSION: 08/21/2020 DATE OF DISCHARGE: 08/22/2020 DIAGNOSIS: Severe peripheral vascular disease with rest pain and ulceration. PROCEDURE: Left external iliac/common femoral/profunda endarterectomy with patch angioplasty. DESCRIPTION OF HOSPITAL STAY: Mr. Spears was brought in for an elective endarterectomy. He has done well postoperatively. He states that his leg pain has resolved. His wound is clean and dry. He is being discharged to home to follow up with me in 2 weeks. DISCHARGE MEDICATIONS: Unchanged with the exception of addition of tramadol 50 mg one p.o. q.6 p.r.n. pain. Job ID: [id number]
== END 2020-08-22 09:58 | disposition home or self-care (01) | DRG 272 ==
LOC: T4-A 10:58 → SURG A 15:56
PROVIDERS: ADMIT Thoracic Surgery (Cardiothoracic Vascular Surgery); ATTEND Thoracic Surgery (Cardiothoracic Vascular Surgery)
PROC: 04CJ0ZZ Extirpation of Matter from Left External Iliac Artery, Open Approach (ICD-10-PCS; principal; 2020-08-21)
PROC: 04CL0ZZ Extirpation of Matter from Left Femoral Artery, Open Approach (ICD-10-PCS; 2020-08-21)
PROC: 04UJ0KZ Supplement Left External Iliac Artery with Nonautologous Tissue Substitute, Open Approach (ICD-10-PCS; 2020-08-21)
PROC: 04UK0KZ Supplement Right Femoral Artery with Nonautologous Tissue Substitute, Open Approach (ICD-10-PCS; 2020-08-21)
DX: I70.262 Atherosclerosis of native arteries of extremities with gangrene, left leg (principal); Z20.828 Contact with and (suspected) exposure to other viral communicable diseases; I10 Essential (primary) hypertension; F17.210 Nicotine dependence, cigarettes, uncomplicated; J43.9 Emphysema, unspecified; E78.5 Hyperlipidemia, unspecified; Z90.49 Acquired absence of other specified parts of digestive tract; Z79.899 Other long term (current) drug therapy; Z79.82 Long term (current) use of aspirin
CPT/HCPCS: 71046; 80048; 85027; 86850; 86900; 86901; 87635; 93005; 93010; J0360; J0690; J1642; J1644; J2370; J2405; J2704; J2720; J3010; J7620; S0020; U0003

== ENCOUNTER 2020-11-05 08:00 | Inpatient (IN) | payer MEDICARE, MEDICAID ==
[2020-11-05 09:54] LABS: Hemoglobin 13.1 g/dL (13.5-17.5); Mean Corpuscular HGB CONC 33.8 g/dL (32.0-36.0); Mean Corpuscular Hemoglobin 32.6 pg (27.0-33.0); Mean Corpuscular Volume 96.5 fl (81.2-95.1); Platelet Count 219 10x3/uL (150-450); RBC Distribution Width 13.1 % (11.5-14.5); Red Blood Cell (RBC) Count 4.02 10x6/uL (4.32-5.72); White Blood Cell (WBC) Count 5.3 10x3/uL (3.5-10.5)
[2020-11-05 10:19] LABS: Anion Gap 20 mmol/L (10-20); BUN (Urea Nitrogen) 59 mg/dL (8.4-25.7); Calc. Creatinine Clearance 0 mL/min (70-130); Calcium 9.8 mg/dL (7.8-10.44); Carbon Dioxide 20 mmol/L (23-31); Chloride 99 mmol/L (98-107); Glucose 76 mg/dL (80-115); Potassium 4.9 mmol/L (3.5-5.1); Sodium 134 mmol/L (136-145)
[2020-11-06 02:36] LABS: SARS-CoV-2 PCR by NAA Not Detected (NotDetected)
[2020-11-06 08:27] VITALS: BMI 15.6
[2020-11-09] MEDS ORDERED: Protamine Sulfate 50 MG/5 ML VIAL ONE (09:00)
[2020-11-09] MEDS ORDERED: Heparin 5,000 UNITS/ML VIAL ONE (09:00)
[2020-11-09] MEDS ORDERED: Fentanyl 100 MCG/2 ML VIAL ONE ×2 (09:51→12:11)
[2020-11-09] MEDS ORDERED: Midazolam HCl 2 mg/2 ml Vial ONE (09:51)
[2020-11-09] MEDS ORDERED: Bupivacaine PF 0.5% 30 ML VIAL ONE (10:21)
[2020-11-09] MEDS ORDERED: EPINEPHrine 1 MG/ML AMP ONE (10:21)
[2020-11-09] MEDS ORDERED: Ondansetron PF 4 MG/2 ML Vial ONE (11:00)
[2020-11-09] MEDS ORDERED: PROPOFOL 200 MG/20 ML VIAL ONE (11:00)
[2020-11-09] MEDS ORDERED: Calcium Chloride 1 GM/10 ML Abboject SYRINGE ONE (11:00)
[2020-11-09] MEDS ORDERED: Dexamethasone 20 MG/5 ML VIAL ONE (11:00)
[2020-11-09] MEDS ORDERED: PHENYLEPHRINE-NS 100 MCG/ML 10 ML SYRINGE ONE (11:00)
[2020-11-09] MEDS ORDERED: ePHEDrine 50 MG/ML VIAL ONE (11:00)
[2020-11-09] MEDS ORDERED: Acetaminophen 325 MG TAB PO PRN (13:16)
[2020-11-09] MEDS ORDERED: Promethazine HCl 25 MG/ML VIAL IM PRN (13:16)
[2020-11-09] MEDS ORDERED: traMADol HCl 50 MG TAB PO PRN ×2 (13:16)
[2020-11-09] MEDS ORDERED: Ondansetron PF 4 MG/2 ML Vial IVP PRN (13:16)
[2020-11-09] MEDS ORDERED: Promethazine HCl 25 MG SUPP PR PRN (13:16)
[2020-11-09] MEDS ORDERED: Fentanyl 100 MCG/2 ML VIAL SLOW IVP PRN (13:16)
[2020-11-09] MEDS: D5 1/2 NS w/20 mEq KCL 1,000 ML IV SCH ×2 (14:48→20:18)
[2020-11-09] MEDS: traMADol HCl 50 MG TAB PO PRN ×2 (14:48→20:20)
[2020-11-09] MEDS: CEFAZOLIN 2 GM in Premix Bag 1 BAG IVPB SCH (18:48)
[2020-11-09] MEDS: Famotidine 20 MG TAB PO SCH (20:16)
[2020-11-09] MEDS: Metoprolol Tartrate 25 MG TAB PO SCH (20:16)
[2020-11-09] MEDS: Atorvastatin Calcium 40 MG TAB PO SCH (20:16)
[2020-11-10] MEDS: CEFAZOLIN 2 GM in Premix Bag 1 BAG IVPB SCH ×2 (01:26→10:21)
[2020-11-10] MEDS: Amlodipine 10 MG TAB PO SCH (08:30)
[2020-11-10] MEDS: Aspirin 325 mg Enteric Coated Tablet PO SCH (08:30)
[2020-11-10] MEDS: Metoprolol Tartrate 25 MG TAB PO SCH ×2 (08:31→21:32)
[2020-11-10] MEDS: Sulfameth/Trimethoprim DS 800-160mg TAB PO SCH ×2 (08:32→21:33)
[2020-11-10] MEDS: Atorvastatin Calcium 40 MG TAB PO SCH (21:32)
[2020-11-10] MEDS: Famotidine 20 MG TAB PO SCH (21:32)
[2020-11-11 07:41] VITALS: BP 109/69; TEMP 98.1
[2020-11-11] MEDS: Sulfameth/Trimethoprim DS 800-160mg TAB PO SCH (07:47)
[2020-11-11] MEDS: Aspirin 325 mg Enteric Coated Tablet PO SCH (07:47)
[2020-11-11] MEDS: Amlodipine 10 MG TAB PO SCH (07:47)
== END 2020-11-11 09:03 | disposition home or self-care (01) | DRG 240 ==
LOC: SURG A 11-09 07:56 → SJJU 11-09 14:23
PROVIDERS: ADMIT Thoracic Surgery (Cardiothoracic Vascular Surgery); ATTEND Thoracic Surgery (Cardiothoracic Vascular Surgery)
PROC: 0Y6N0Z5 Detachment at Left Foot, Complete 2nd Ray, Open Approach (ICD-10-PCS; principal; 2020-11-09)
PROC: 0Y6M0Z5 Detachment at Right Foot, Complete 2nd Ray, Open Approach (ICD-10-PCS; 2020-11-09)
PROC: 04CK0ZZ Extirpation of Matter from Right Femoral Artery, Open Approach (ICD-10-PCS; 2020-11-09)
PROC: 04UK0KZ Supplement Right Femoral Artery with Nonautologous Tissue Substitute, Open Approach (ICD-10-PCS; 2020-11-09)
DX: I70.261 Atherosclerosis of native arteries of extremities with gangrene, right leg (principal); R64 Cachexia; Z68.1 Body mass index [BMI] 19.9 or less, adult; Z20.822 Contact with and (suspected) exposure to COVID-19; F17.210 Nicotine dependence, cigarettes, uncomplicated; F10.10 Alcohol abuse, uncomplicated; I10 Essential (primary) hypertension; J43.9 Emphysema, unspecified; E78.5 Hyperlipidemia, unspecified; Z90.49 Acquired absence of other specified parts of digestive tract; Z79.82 Long term (current) use of aspirin; Z79.899 Other long term (current) drug therapy
CPT/HCPCS: 80048; 85027; 86850; 86900; 86901; 87635; J0171; J0690; J1100; J1642; J1644; J2250; J2405; J2704; J2720; J3010; J3480; J3490; S0020; U0003; U0005